=== PATIENT | male | born 1980 | race Caucasian/White ===

== ENCOUNTER 2019-12-31 13:41 | Outpatient (REF) | payer BC, SELFPAY | END 2019-12-31 13:42 | disposition home or self-care (01) | LOC: HO.LNP 13:41 | PROVIDERS: Visit Provider Hospitalist | DX: Z20.828 Contact with and (suspected) exposure to other viral communicable diseases (principal) | CPT/HCPCS: U0003 ==

== ENCOUNTER 2023-08-03 02:12 | Emergency (ER) | payer OTHER, SELFPAY ==
[2023-08-03 02:18] VITALS: PULSE 160; O2SAT 96
[2023-08-03 02:23] VITALS: BP 136/78; PULSE 151; RESP 22; TEMP 37.3; O2SAT 95; BMI 31.4
--- NOTE | 2023-08-03 02:30 | ECG_ITS ---
Test Reason : CHEST PAIN Blood Pressure : / mmHG Vent. Rate : 149 BPM Atrial Rate : 149 BPM P-R Int : 126 ms QRS Dur : 080 ms QT Int : 282 ms P-R-T Axes : 047 026 047 degrees QTc Int : 444 ms Sinus tachycardia Otherwise normal ECG No previous ECGs available Referred By: Generic ED Physician Electronically Signed By:REHAN HOWARD MD
--- NOTE | 2023-08-03 02:41 | PC.NURSE ---
Pt declining blood work and IV line placement at this time. made aware.
--- NOTE | 2023-08-03 02:42 | PC.NURSE ---
Urinal provided for urine sample. Pt unable to provide sample at this time.
--- NOTE | 2023-08-03 03:29 | MHC.EDTECH ---
PATIENT REFUSED BLOOD DRAW
--- NOTE | 2023-08-03 03:33 | PC.NURSE ---
Patient still refusing lab work and IV line at this time. WIll continue to reassess.
[2023-08-03 04:22] VITALS: BP 101/53; PULSE 120; RESP 16; TEMP 36.6; O2SAT 95
[2023-08-03 06:22] VITALS: BP 110/65; PULSE 119; RESP 18; TEMP 36.5; O2SAT 95
--- NOTE | 2023-08-03 07:07 | ED_ITS ---
HPI - General Adult General Chief complaint: General Medical Stated complaint: INGESTED MUSHROOMS Time Seen by Provider: 08/03/23 07:07 History of Present Illness HPI narrative: Patient is a 43-year-old male who comes to the emergency room this morning feeling unwell after taking some kind of gummies that he took it around midnight. He started to feel very high an anxious and paranoid. He says that he was out with friends partying when this happened. Somebody called an ambulance. His heart rate with paramedics was 165. His heart rate when he arrived here was 151. He says that he still feels very high and is having trouble relaxing. He says he has never used these kind of drugs before. The patient said that he had biceps surgery on his left arm approximately 5 days ago at [facility]. He had repair of a biceps tendon rupture he thinks. He says that he also took the gummies because he was having pain. No suicidality. Related Data Home Medications ?Medication ?Instructions ?Recorded ?Confirmed No Known Home Meds 12/31/19 12/31/19 Allergies Allergy/AdvReac Type Severity Reaction Status Date / Time No Known Allergies Allergy Verified 08/03/23 02:28 Review of Systems 2 Review of Systems: Yes all other systems are reviewed and are negative [facility] Social History Social History Smoked in Last 30 Days: Yes Use of substances other than those prescribed or required for medical reasons: Yes Advance Directives: No Advance Directives Information Provided: No Do you have a plan to hurt others: No Plan Physical Exam ED Vital Signs: Vital Signs - 24 hr 08/03/23 02:23 08/03/23 04:22 08/03/23 06:22 Temperature 99.1 F 97.8 F 97.7 F Pulse Rate 151 H 120 H 119 H Respiratory Rate 22 H 16 18 Blood Pressure 136/78 101/53 L 110/65 Pulse Oximetry 95 95 95 Oxygen Delivery Method Room Air Room Air Room Air BMI result Body Mass Index 31.4 Const Other: The patient is awake and alert. He is complaining of feeling anxious. Does not seem in obvious distress. HENMT Other: Face is symmetrical. Mucous membranes moist. Eyes Other: Pupils are round equal, conjunctivae clear, extraocular movements intact Neck Other: Neck is supple. Resp Effort & Inspection: normal respiratory effort Auscultation: clear to auscultation bilaterally Cardio Rate: tachycardic Rhythm: regular rhythm Heart sounds: S1 normal heart sound present and S2 normal heart sound present GI Other: Abdomen is soft and nontender Skin Other: Skin is dry and unremarkable Neuro Other: The patient is awake and alert. He does not seem disoriented or significantly altered. He is complaining of feeling anxious but seems coherent. Cranial nerves are intact. He moves his extremities symmetrically although his left arm is in an orthopedic device. Extrem Other: The patient's left arm is in an orthopedic appliance. The other extremities are unremarkable. Medications Administered Discontinued Medications Generic Name Dose Route Start Last Admin Trade Name Freq PRN Reason Stop Dose Admin Lorazepam 2 mg 08/03/23 07:18 08/03/23 08:16 Lorazepam 1 Mg Tablet PO 08/03/23 07:19 2 mg ONCE ONE Administration Medical Decision Making Medical Decision Making [facility] Narrative: The patient is a 43-year-old male who presented with symptoms of anxiety after using what I believe were marijuana gummies. He does not seem obviously ill in any other way although he was tachycardic. His tachycardia had largely resolved by the time I saw him. He was given 2 mg of lorazepam. He was observed for many hours. At 1 point he said that he was feeling better. Ultimately when I went to check on him it was apparent that he had eloped from the emergency department prior to any further discussions or discharge recommendations. Lab Data 08/03/23 09:06 08/03/23 09:05 Labs: Lab Results 08/03/23 08/03/23 Range/Units 09:05 09:06 WBC 10.8 (4.8-10.8) X10*3/uL RBC 4.78 (4.60-5.80) X10*6/uL Hgb 16.5 (14.0-18.0) g/dl Hct 44.4 (42.0-52.0) % MCV 92.9 (80.0-98.0) fL MCH 34.5 H (27.0-33.0) pg MCHC 37.2 H (31.0-36.0) g/dl RDW 11.8 (11.0-16.0) % Plt Count 304 (160-400) X10*3/uL MPV 9.4 (9.4-12.4) fL Immature Gran % (Auto) 0.5 H (0.0-0.4) % Neut % (Auto) 74.4 H (45-73) % Lymph % (Auto) 18.2 L (20-40) % [place] % (Auto) 6.1 (2-11) % Eos % (Auto) 0.4 (0-4) % Baso % (Auto) 0.4 (0-2) % Lymph # (Auto) 2.0 (1.2-4.9) X10*3/uL [place] # (Auto) 0.7 (0.1-1.2) X10*3/uL Eos # (Auto) 0.0 (0.0-0.4) X10*3/uL Baso # (Auto) 0.0 (0.0-0.2) X10*3/uL Abs Immat Gran (auto) 0.05 H (0.00-0.03) X10*3/uL Absolute Neuts (auto) 8.0 (2.0-8.3) x10*3/uL Absolute Nucleated RBC 0.000 (0.0-0.012) X10*3/uL Nucleated RBC % (auto) 0.0 (0.0-0.2) /100WBC Sodium 141 (135-145) mmol/L Potassium 4.0 (3.3-5.1) mmol/L Chloride 107 (96-108) mmol/L Carbon Dioxide 24 (22-29) mmol/L Anion Gap 14 (12-20) BUN 15 (9-16) mg/dL Creatinine 0.79 (0.5-1.4) mg/dL Estim Creat Clear Calc 152.5 Estimated GFR > 60 Random Glucose 111 (60-115) mg/dL Calcium 9.6 (8.4-10.2) mg/dL Total Bilirubin 0.5 (0.0-1.0) mg/dL AST 32 (5-37) U/L ALT 76 H (0-40) U/L Alkaline Phosphatase 84 (39-117) U/L Troponin I High Sens < 2.7 (<3.5-35.0) ng/L Total Protein 7.5 (6.5-8.0) g/dL Albumin 4.4 (3.5-5.0) g/dL Ethyl Alcohol 13 mg/dL Independent Interpretation I performed an independent interpretation of an: EKG Interpretation: EKG at 02:28 shows sinus tachycardia 149 beats per minute. It is an otherwise normal EKG. Discharge Plan Discharge Clinical Impression: Diagnosis unknown Patient Disposition: Elopement Prescriptions: No Action No Known Home Meds Interventions: ED Discharge Assessment Last Done: 08/03/23 19:21 Discharge Date/Time: 08/03/23 19:21 Print Language: French
--- NOTE | 2023-08-03 07:15 | PC.NURSE ---
ASSUMED CARE OF PT THIS AM, PT IS 1&OX4, VERY ANXIOUS, UNABLE TO SLEEP, STATES HE ATE 3 THC GUMMIES FOR PAIN AFTER HIS SURGERY YESTERDAY.. HAS BEEN REFUSING LABS. PT TO BE GIVEN PO ATIVAN.
[2023-08-03] MEDS: LORazepam 1 MG TABLET 2 MG PO (08:16)
[2023-08-03 09:10] LABS: MANUAL DIFF FLAG NO
[2023-08-03 09:12] LABS: Basophils Percent Auto 0.4 % (0-2); Eosinophils Percent Auto 0.4 % (0-4); Hematocrit 44.4 % (42.0-52.0); Hemoglobin 16.5 g/dl (14.0-18.0); Imm Gran Abs Auto 0.05 X10*3/uL (0.00-0.03); Imm Gran Pct Auto 0.5 % (0.0-0.4); Lymphocytes Percent Auto 18.2 % (20-40); Mean Corpuscular HGB Conc 37.2 g/dl (31.0-36.0); Mean Corpuscular Hemoglobin 34.5 pg (27.0-33.0); Mean Corpuscular Volume 92.9 fL (80.0-98.0); Mean Platelet Volume 9.4 fL (9.4-12.4); Monocytes Absolute Auto 0.7 X10*3/uL (0.1-1.2); Monocytes Percent Auto 6.1 % (2-11); Neutrophils Percent Auto 74.4 % (45-73); Platelet Count 304 X10*3/uL (160-400); Red Blood Count 4.78 X10*6/uL (4.60-5.80); Red Cell Distribution Width 11.8 % (11.0-16.0); White Blood Count 10.8 X10*3/uL (4.8-10.8)
[2023-08-03 09:23] LABS: Ethanol 13 mg/dL
[2023-08-03 09:26] LABS: Alanine Aminotransferase 76 U/L (0-40); Albumin Level 4.4 g/dL (3.5-5.0); Alkaline Phosphatase 84 U/L (39-117); Anion Gap 14 (12-20); Aspartate Amino Transferase 32 U/L (5-37); Bilirubin Total 0.5 mg/dL (0.0-1.0); Blood Urea Nitrogen 15 mg/dL (9-16); Calcium 9.6 mg/dL (8.4-10.2); Carbon Dioxide 24 mmol/L (22-29); Chloride 107 mmol/L (96-108); Creatinine Clr Calc Pharmacy 152.5; Estimated Glomerular Filt Rate > 60; Glucose Random 111 mg/dL (60-115); Sodium 141 mmol/L (135-145); Total Protein 7.5 g/dL (6.5-8.0)
[2023-08-03 09:39] LABS: Troponin-I High Sensitivity < 2.7 ng/L (<3.5-35.0)
[2023-08-03 19:21] VITALS: BP 110/65; PULSE 119; RESP 18; TEMP 36.5; O2SAT 95
== END 2023-08-03 19:21 | disposition left against medical advice (07) ==
PROVIDERS: Emergency Provider Emergency Medicine
DX: R00.0 Tachycardia, unspecified (principal)
CPT/HCPCS: 36415; 80053; 80307; 84484; 85025; 93005; 99283; 99284

== ENCOUNTER → 2023-08-03 02:30 | Outpatient (BNV) | payer OTHER, SELFPAY | PROVIDERS: Emergency Provider Emergency Medicine; Visit Provider Internal Medicine Cardiovascular Disease | DX: R07.9 Chest pain, unspecified (principal); R00.0 Tachycardia, unspecified | CPT/HCPCS: 93010 ==

== ENCOUNTER 2025-01-17 11:17 | Outpatient (REF) | payer BC, SELFPAY ==
[2025-01-17 18:23] LABS: MANUAL DIFF FLAG NO
[2025-01-17 18:40] LABS: Hematocrit 51.6 % (42.0-52.0); Hemoglobin 18.1 g/dl (14.0-18.0); Imm Gran Abs Auto 0.01 X10*3/uL (0.00-0.03); Imm Gran Pct Auto 0.1 % (0.0-0.4); Lymphocytes Absolute Auto 2.1 X10*3/uL (1.2-4.9); Mean Corpuscular HGB Conc 35.1 g/dl (31.0-36.0); Mean Corpuscular Hemoglobin 33.4 pg (27.0-33.0); Mean Corpuscular Volume 95.2 fL (80.0-98.0); NRBC Abs Auto 0.000 X10*3/uL (0.0-0.012); NRBC Pct Auto 0.0 /100WBC (0.0-0.2); Platelet Count 256 X10*3/uL (160-400); Red Blood Count 5.42 X10*6/uL (4.60-5.80); White Blood Count 9.1 X10*3/uL (4.8-10.8)
[2025-01-17 18:47] LABS: Appearance Urine Turbid; Glucose Urine UA Negative (Negative); PH 5.5 (5.0-9.0); Specific Gravity - Urine >= 1.030 (1.005-1.025)
[2025-01-17 19:02] LABS: Alanine Aminotransferase 33 U/L (0-40); Albumin Level 5.0 g/dL (3.5-5.0); Alkaline Phosphatase 94 U/L (39-117); Anion Gap 12 (12-20); Aspartate Amino Transferase 27 U/L (5-37); Blood Urea Nitrogen 16 mg/dL (9-16); Calcium 9.6 mg/dL (8.4-10.2); Carbon Dioxide 26 mmol/L (22-29); Chloride 107 mmol/L (96-108); Cholesterol 172 mg/dL (<200); Estimated Glomerular Filt Rate > 60; HDL Cholesterol 44 mg/dL (>40); Magnesium 2.3 mg/dL (1.6-2.6); Potassium 3.8 mmol/L (3.3-5.1); Sodium 141 mmol/L (135-145); Total Protein 7.9 g/dL (6.5-8.0); Triglycerides 131 mg/dL (<150)
[2025-01-17 19:25] LABS: Folate 11.4 ng/mL (> or = 4.0); Vitamin B12 500 pg/mL (200-900)
[2025-01-18 05:10] LABS: HBS Num1 0.40 mIU/mL (0-7.99); HBsAGNum1 0.49 S/CO (0.00-0.99); HIV Num 1 0.07 S/CO (0.00-0.99); Hepatitis B Surface Antigen Negative (Negative); ~HepC Num1 0.14 S/CO (0.00-0.79); ~Hepatitis B Surface Antibody NONREACTIVE (Nonreactive); ~Hepatitis C Antibody Nonreactive (Nonreactive)
[2025-01-21 15:32] LABS: VITAMIN D (1,25 OH) D3 58 pg/mL; Vit D (1,25-Dihydroxy) Total 58 pg/mL (18-72); Vitamin D (1,25 OH) D2 <8 pg/mL
== END 2025-01-17 11:18 | disposition home or self-care (01) ==
LOC: HO.HKASLDS 11:17
PROVIDERS: PCP Student in an Organized Health Care Education/Training Program; Visit Provider Student in an Organized Health Care Education/Training Program
DX: Z13.9 Encounter for screening, unspecified (principal); E66.9 Obesity, unspecified; K92.1 Melena; J45.40 Moderate persistent asthma, uncomplicated; K40.90 Unilateral inguinal hernia, without obstruction or gangrene, not specified as recurrent; G47.9 Sleep disorder, unspecified; R03.0 Elevated blood-pressure reading, without diagnosis of hypertension; Z79.899 Other long term (current) drug therapy; Z83.719 Family history of colon polyps, unspecified; Z68.29 Body mass index [BMI] 29.0-29.9, adult
CPT/HCPCS: 36415; 80053; 80061; 81003; 82607; 82652; 82746; 83036; 83735; 84443; 85025; 86706; 86803; 87340; 87389; 96127

== ENCOUNTER 2025-01-17 11:17 | Outpatient (AMB) | payer BC, SELFPAY ==
--- NOTE | 2025-01-17 11:20 | A.OFFPC_ITS ---
Vital Signs 01/17/25 11:27 Height 6 ft 0.5 in Weight 222 lb 2 oz BMI 29.7 BP 134/70 Blood Pressure Location Lt brachial Position Sitting Respiration 20 Pulse 92 Pulse Source Monitor Temp 97.4 F Temp Source Oral Pulse Oximetry (%) 96 Oxygen Delivery Method Room Air Intake Visit Reasons: LOAN ADMINISTRATOR // Stomach Issues Intake Note: stomach issues Algology Teacher Required: No Accompanied by: Self / Same As Patient Allergies No Known Allergies Allergy (Verified 01/17/25 11:24) Medication List - Last Reconciled 01/17/25 by Kermit Khan MD albuterol sulfate 90 mcg/actuation (Ventolin HFA) 2 puffs inhalation Q6H PRN budesonide-formoterol 80-4.5 mcg/actuation 2 puffs inhalation BID Tobacco use date assessed: 01/17/25 Dental Screening Dental Screen Date: 01/17/25 Did you have a dental visit in the last 12 months?: No Did you have a dental problem in the last 6 months where you did not have access to dental care?: No Was dental information given to patient?: No HPI HPI Comments History of Present Illness Details History of Present Illness The patient is a 44 year old individual presenting to replaced by [facility], for management of worsening asthma, and evaluation of intermittent hematochezia. Asthma: The patient has a history of asthma, which has worsened recently. Over the past month, the patient has had to use an xzid-ckn-atotmdh rescue inhaler frequently due to an increase in symptoms. Hematochezia: The patient reports intermittent episodes of passing blood in the stool. The patient describes the blood as being mixed in the feces, and also present on toilet paper when wiping. A previous physician recommended a colonoscopy, which was never completed. The patient acknowledges a history of hemorrhoids. There is a family history of colon polyps in the patient's father. Right Inguinal Hernia: The patient has had a right inguinal hernia for years. A previous doctor had suggested that surgery may not be necessary. The patient reports feeling it Sleep Disturbance: The patient reports a lifelong history of poor sleep and not feeling refreshed upon waking. History of Prehypertension: A previous physician informed the patient of having borderline high blood pressure and warned that antihypertensive medication might be necessary if it persisted, although none was ever prescribed. History of Suspicious Nevus: The patient was informed by a previous physician about a mole on the back that appeared irregular and needed to be checked, but the patient never followed up. Medications: - Fjnq-ixe-sbkbbnr rescue inhaler as nee ded for asthma, with increased use over the last month. Social History: - Tobacco Use: Denies smoking. - Illicit Drug Use: Denies drug use. - Occupation: Works as a [employer]. - Family: Has a son. - Insurance: Employment is through a [employer] on and recently regained insurance co verage. Family History: - Father: History of colonic polyps and current heart issues. - Mother: ; had a history of earl ast cancer and subsequently cancer involving the kidneys. - Grandfathers: Both paternal and matern al grandfathers from heart attacks. Past Medical History - Asthma - Right inguinal hernia, present for yea rs, untreated - History of prehypertension - Hemorrhoids - History of suspicious nevus on back, u nevaluated Health Maintenance - Ordered comprehensive laboratory studi es including a complete blood count, comprehensive metabolic panel, thyroid stimulating hormone, vitamin B12, folate, vitamin D, hepatitis B and C panel, HIV screen, hemoglobin A1c, and a lipid panel. - Plan to follow up in two weeks to revi ew the results. [facility] Medical History (Updated 01/17/25 @ 11:59 by Kermit Khan MD) Prehypertension Sleep disturbance Right inguinal hernia Moderate persistent asthma Family history of polyps in the colon Bloody stool Biceps tendon tear Asthma Surgical History (Updated 01/17/25 @ 11:26 by Gary Martin CMA) S/P ACL surgery Family History (Updated 01/17/25 @ 11:26 by Gary Martin CMA) Mother Cancer Social History (Updated 01/17/25 @ 11:27 by Gary Martin CMA) Housing: Apartment Alcohol intake: never Patient Tobacco Use Status: Never used Tobacco e-Cigarette/Vaping Use: Never Used service: No Current occupational status: employed Current occupation: carpenter apprentice Current occupational exposures/hazards: Yes Cognitive needs: No Hearing needs: No Vision needs: Yes Questionnaire PHQ-9 Over the last 2 weeks, how often have you been bothered by any of the following problems? 1. Little interest or pleasure in doing things: not at all 2. Feeling down, depressed, or hopeless: not at all 3. Trouble falling or staying asleep, or sleeping too much: not at all 4. Feeling tired or having little energy: not at all 5. Poor appetite or overeating: not at all 6. Feeling bad about yourself - or that you are a failure or have let yourself or your family down: not at all 7. Trouble concentrating on things, such as reading the newspaper or watching television: not at all 8. Moving or speaking so slowly that other people could have noticed. Or the opposite - being so fidgety or restless that you have been moving around a lot more than usual: not at all 9. Thoughts that you would be better off or of hurting yourself in some way: not at all Total score: 0 Depression Screening Interpretation: Negative Depression Screening Done: Yes 48514 - PHQ-9 Billing: Yes Source: Developed by Drs. Graham Hairston, Maria Esther Neely, Major Rocha and colleagues, with an educational kyrie from [email or web address]. Thrive Questionnaire Date Thrive assessed: 01/17/25 I am a: Patient What is your living situation today?: I have a steady place to live Within the past 12 months, did the food you bought not last and you didn't have the money to get more?: Never true Within the past 12 months, did you worry whether your food would run out before you got money to buy more?: Never true Do you have trouble paying for medicines?: No Do you have trouble getting transportation to medical appointments?: No Do you have trouble paying your heating and electricity bill?: No Do you have trouble taking care of your child, family member or friend?: No Are you currently unemployed and looking for a job?: No Are you interested in more education?: No Please select the resources that you would like help with: None Currently or been in a relationship where the following occur: No concerns reported THRIVE Score: 0 AUDIT C Alcohol Use Questionnaire (AUDIT-C) 1. How often do you have a drink containing alcohol?: Never Total Score: 0 SAMRA-7 AMB Questionnaire SAMRA-7 Date SAMRA - 7 assessed: 01/17/25 Feeling nervous, anxious, or on edge: 0 = Not at all Not being able to stop or control worryin = Not at all Worrying too much about different things: 0 = Not at all Trouble relaxin = Not at all Being so restless that it is hard to sit still: 0 = Not at all Becoming easily annoyed or irritable: 0 = Not at all Feeling afraid as if something awful might happen: 0 = Not at all Total SAMRA-7 score (0-4 normal; 5-9 mild; 10-14 moderate; 15-21 severe): 0 Source: Developed by Drs. Graham Hairston, Maria Esther Neely, Major Rocha and colleagues, with an educational kyrie from [email or web address]. SAMRA-7 Assessment Billing SAMRA-7 Assessment Tool: SAMRA-7 Assessment 56489 Review of Systems Narrative Review of Systems - Constitutional: Reports lifelong poor sleep and not feeling refreshed in the morning. - Respiratory: Reports worsening asthma symptoms recently, requiring frequent use of a rescue inhaler. - Gastrointestinal: Reports intermittent hematochezia, described as blood in the stool. Acknowledges having hemorrhoids. Reports normal bowel and bladder function otherwise. - Skin: Reports a history of a mole on the back that was previously identified as irregular by another provider. - All other systems reviewed and are negative. 10-point ROS reviewed and negative except as noted in HPI Physical exam (Primary Care) Vital Signs: Last Vital Signs Temp 97.4 F 01/17/25 11:27 Pulse 92 01/17/25 11:27 Resp 20 01/17/25 11:27 BP 134/70 01/17/25 11:27 Pulse Ox 96 01/17/25 11:27 Oxygen Delivery Method Room Air 01/17/25 11:27 BMI result Body Mass Index 29.7 Tobacco/Smoking Status: Tobacco use Status Tobacco use date assessed 01/17/25 01/17/25 11:29 Patient Tobacco Use Status Never used Tobacco 01/17/25 11:29 e-Cigarette/Vaping Use Never Used 01/17/25 11:29 PHQ-9: PHQ-9 Score PHQ-9: Total score 0 01/17/25 11:33 Depression Screening Interpretation: Negative Thrive Assessment: Date of Thrive Assessment Date Thrive assessed 01/17/25 01/17/25 11:23 Currently or been in a relationship where the following occur: No concerns reported Narrative Physical Exam General: Well-appearing, in no acute distress. Vital signs: Within normal limits. HEENT: Normocephalic, atraumatic. PERRLA, EOMI. Conjunctiva clear, sclera anicteric. Oropharynx clear, mucous membranes moist. TMs intact bilaterally. Neck: Supple, no lymphadenopathy, no thyromegaly, no JVD or carotid bruits. Cardiovascular: RRR, normal S1/S2, no murmurs, rubs, or gallops. Peripheral pulses 2+ and symmetric. No edema. Respiratory: Lungs clear to auscultation bilaterally, no wheezes, rales, or rhonchi. Normal effort. Abdomen: Soft, non-tender, non-distended. Normoactive bowel sounds. No hepatosplenomegaly, no masses. MSK: Full range of motion, no joint swelling or deformity. Normal gait. Skin: Warm, dry, intact. No rashes, lesions, or pallor. Noted mole on back, appears fine. Neuro: Alert and oriented x3. Cranial nerves II-XII intact. Strength 5/5 thr oughout. Sensation intact. Reflexes 2+ symmetric. Normal coordination and gait. Psych: Appropriate mood and affect. Normal judgment and insight. Coding Level of Care Code New Pt Level 4 (15971) Diagnoses Overweight (BMI 25.0-29.9) E66.3 Bloody stool K92.1 Family history of polyps in the colon Z83.719 Moderate persistent asthma J45.40 Right inguinal hernia K40.90 Sleep disturbance G47.9 Prehypertension R03.0 Additional Codes SAMRA-7 Assessment Billing - SAMRA-7 Assessment Tool: SAMRA-7 Assessment 52511 ([id number]) PHQ-9 - 53485 - PHQ-9 Billing: Yes ([id number]) Assessment & Plan Assessment & Plan (1) Overweight (BMI 25.0-29.9): Code(s): E66.3 - Overweight (2) Bloody stool: Code(s): K92.1 - Melena Category: Medical (3) Family history of polyps in the colon: Code(s): Z83.719 - Family history of colon polyps, unspecified Category: Medical (4) Moderate persistent asthma: Code(s): J45.40 - Moderate persistent asthma, uncomplicated Category: Medical (5) Right inguinal hernia: Code(s): K40.90 - Unilateral inguinal hernia, without obstruction or gangrene, not specified as recurrent Category: Medical (6) Sleep disturbance: Code(s): G47.9 - Sleep disorder, unspecified Category: Medical (7) Prehypertension: Code(s): R03.0 - Elevated blood-pressure reading, without diagnosis of hypertension Category: Medical Plan Consent The risks, benefits, and alternatives for the prescribed maintenance inhaler were discussed, including the risk of developing oral thrush if the mouth is not rinsed after use. The risks associated with an untreated inguinal hernia, including the potential for strangulation and subsequent necrosis, were explained. The patient agreed to lab work, a referral to gastroenterology for colonoscopy, and a referral to general surgery for evaluation of the hernia. Patient was informed and verbally consented to the use of an ambient scribe for clinic note documentation during this visit. Plan 1. Mild Intermittent Asthma - Prescribed an albuterol inhaler for rescue use. - A prescription for a combination steroid/long-acting bronchodilator maintenance inhaler was sent to the pharmacy, to be used twice daily. - A prior authorization is required for the maintenance inhaler. - The patient was counseled to rinse their mouth after using the maintenance inhaler to prevent oral thrush. 2. Hematochezia - Placed a referral to Gastroenterology for further evaluation and a colonoscopy to investigate the cause of bleeding, considering the differential of hemorrhoids versus other pathology such as polyps. 3. Right Inguinal Hernia - Referred to a general surgeon for evaluation and to discuss management options. - The patient was informed about the risk of strangulation. 4. Sleep Disturbance - Will consider ordering an at-home sleep study at the follow-up visit if sympto ms persist. 5. History Of Suspicious Nevus - A skin exam of the patient's back was performed, and no suspicious lesions were identified. - Plan to continue monitoring. Discussion Notes I met with the patient, a 44-year-old individual, to establish primary care. We discussed the recent worsening of asthma symptoms and the need for a daily maintenance inhaler in addition to a rescue inhaler. I explained that the maintenance inhaler contains a steroid and must be used twice daily, emphasizing the importance of rinsing the mouth afterward to prevent oral thrush. We addressed the patient's report of bloody stools. Given the symptoms and an paternal family history of colon polyps, I recommended a referral to a dictaphone mechanic for a colonoscopy to determine the cause. We discussed that while hemorrhoids are a possible cause, a thorough evaluation is necessary. The patient also has a long-standing right inguinal hernia. I explained the risk of strangulation, a serious complication where tissue can become trapped and lose blood supply, and recommended a referral to a general surgeon for evaluation. We will obtain comprehensive baseline labs and review them in two weeks. We also discussed cardiovascular risk prevention, focusing on lifestyle modifications. An at-home sleep study was mentioned as a potential future diagnostic for the patient's chronic sleep issues. Patient Instructions - Use your new daily maintenance inhaler every day, taking two puffs in the morning and two puffs at night, even if you feel well. - After using the maintenance inhaler, you must rinse your mouth with water and spit it out to prevent an infection called thrush. - Use the albuterol (rescue) inhaler only when you feel short of breath or are wheezing. - You will be contacted by a specialist's office to schedule an appointment with a stomach doctor (dictaphone mechanic) to have a colonoscopy. - You will also be contacted by a surgeon's office to schedule an appointment to discuss your hernia. - Go to a laboratory to have your blood drawn for the tests that were ordered. - Return to the office in two weeks to discuss your lab results. - If your hernia becomes very painful and you cannot push it back in, you need to seek medical care immediately. Medical Decision Making The patient is a 44-year-old individual presenting to replaced by [facility] with several active health concerns. The primary issue of poorly controlled asthma, evidenced by increased use of a rescue inhaler, warrants a step-up in therapy. I have prescribed a combination inhaled corticosteroid/long-acting beta-agonist (ICS/LABA) for daily maintenance to reduce airway inflammation and provide sustained bronchodilation, which is pending prior authorization. The patient's report of hematochezia is concerning, particularly in the context of a family history of colon polyps. While hemorrhoids are also reported and could be the source of bleeding, the description of blood mixed within the stool necessitates a comprehensive evaluation. Therefore, a referral to gastroenterology for consultation and colonoscopy is the most appropriate next step to rule out significant pathology. The long-standing and symptomatic inguinal hernia requires surgical consultation. I have referred the patient to general surgery to discuss the risks, including strangulation, versus the benefits of surgical repair. Comprehensive baseline labs have been ordered to screen for common chronic conditions like diabetes and dyslipidemia and to assess the patient's overall health status. Cardiovascular risk was discussed in the context of a significant family history, and the current plan focuses on prevention and monitoring through lab work and lifestyle assessment. The chronic sleep disturbance will be re-evaluated at the two-week follow-up, with a low threshold for ordering an at- home sleep study if indicated. Total Time Statement 30 min Total time spent caring for the patient today includes pre-visit chart review, documentation, review of laboratory and diagnostic imaging results, medication reconciliation, medically necessary evaluation, counseling on diagnoses, care coordination, ordering appropriate tests and medications, review of tests performed by other providers, reporting test results to the patient, and communication with other healthcare providers. Orders: Orders Hepatitis C Antibody Today Z13.9 - Encounter for screening, unspecified TSH reflex Free T4 Today Z13.9 - Encounter for screening, unspecified HIV Ab/Ag Today Z13.9 - Encounter for screening, unspecified Lipid Panel Today Z13.9 - Encounter for screening, unspecified Hemoglobin A1c Today Z13.9 - Encounter for screening, unspecified Magnesium Today Z13.9 - Encounter for screening, unspecified Hepatitis B Surface Antibody Today Z13.9 - Encounter for screening, unspecified Complete Blood Count Auto Diff Today Z13.9 - Encounter for screening, unspecified Hepatitis B Surface Antigen Today Z13.9 - Encounter for screening, unspecified Comprehensive Met. Panel Today Z13.9 - Encounter for screening, unspecified UA CC w/rflx Micro + Cult Today Z13.9 - Encounter for screening, unspecified AMB Hemoglobin A1c Today Z13.9 - Encounter for screening, unspecified Vitamin B12 and Folate Today Z13.9 - Encounter for screening, unspecified Vitamin D 1,25 dihydroxy Today Z13.9 - Encounter for screening, unspecified Referrals Gastroenterology Referral J45.40 - Moderate persistent asthma, uncomplicated, K92.1 - Melena, Z83.719 - Family history of colon polyps, unspecified General Surgery Referral K40.90 - Unilateral inguinal hernia, without obstruction or gangrene, not specified as recurrent Medications: New albuterol sulfate 90 mcg/actuation (Ventolin HFA) 2 puffs inhalation Q6H PRN 8.5 grams 3RF shortness of breath or wheezing budesonide-formoterol 80-4.5 mcg/actuation 2 puffs inhalation BID 10.2 grams 0RF
[2025-01-17 11:27] VITALS: BP 134/70; PULSE 92; RESP 20; TEMP 36.3; O2SAT 96; BMI 29.7
--- OUTSIDE RECORDS SUMMARY | 2025-01-17 14:42 | XMS_ITS | Encounter Summary ---
Author Organization [facility] Address [address] [place] [address] [place] [address] Phone Care Team Providers Care Real Estate Recruiter Name Role Phone Adriana Vee Primary Care Provider Pcp, Unknown Primary Care Provider Unavailabl e Pcp, Unknown Primary Care Provider Unavailabl e Adriana Vee Unavailable [phone] Lubna Cabrales MD Unavailable Lubna Cabrales MD Unavailable Lubna Cabrales MD Unavailable Pcp, Unknown Primary Care Provider Unavailabl e Encounter Details Date Type Department Care Team (Latest Contact Info) Description 02/20/2017 Transcribe Orders [facility] [address] [place] [address] Adriana Vee PA [address] [place] [address] [email or web address] Routine general medical examination at a health care facility (Primary Dx); Chest pain, unspecified type; Palpitations; Dizziness and giddiness Social History Tobacco Use Types Packs/Day Years Used Date Smoking Tobacco: Never Assessed Sex and Gender Information Value Date Recorded Sex Assigned at Male 09/08/2022 12:51 PM EDT Legal Sex Male 12:41 PM EDT Gender Identity Male 09/08/2022 12:51 PM EDT Sexual Orientation Straight 02/19/2024 5: 16 PM EST documented as of this encounter Plan of Treatment Not on file documented as of this encounter Results * Chlamydia Trachomatis and Neisseria Gonorrhoeae Nucleic Acid Detection (02/20/2017 3:55 PM EST) CHLAMYDIA TRACHOMATIS Not Detected Not Detected [facility] NEISERIA GONORRHOEAE Not Detected Not Detected [facility] SPECIMEN TYPE URINE [facility] Urine (Urine) 02/20/2017 3:5 5 PM EST 02/20/2017 3:57 PM EST Adriana LESLIE LAB GENERAL ORDERABLES Final Re sult Performing Organization Address [facility] Co de Phone Number [address] [address] * (ABNORMAL) Urinalysis (02/20/2017 3:55 PM EST) COLOR Yellow Yellow [facility] CLARITY CLOUDY [facility] GLUCOSE Negative Negative [facility] BILI Negative Negative [facility] KETONES Trace(A) Negative [facility] SPECIFIC GRAVITY 1.015 1.005 - 1.030 [facility] BLOOD Negative Negative [facility] PH 7.5 5.0 - 8.0 [facility] Protein-UA Negative Negative [facility] NITRITE Negative Negative [facility] Leukocyte esterase, ur Negative Negative [facility] Urine (Urine) 02/20/2017 3:5 5 PM EST 02/20/2017 3:57 PM EST Adriana LESLIE LAB URINE ORDERABLES Final Resu lt Performing Organization Address [facility] Co de Phone Number [address] [address] * Syphilis antibody screen (02/20/2017 2:17 PM EST) RPR NON-REACTIV E NON-REACTI VE [facility] Blood 02/20/2017 2:17 PM EST 02/20/2017 2:25 PM EST us Adriana Blume PA LAB BLOOD BKR ORDERABLES Final Result Performing Organization Address City/[facility]/ZIP Co de Phone Number [address] [address] * HIV-1/2 antigen/antibody (02/20/2017 2:17 PM EST) HIV Antibod(ies) NON-REACTI VE NON-REACTI VE [facility] HIV-1 ANTIGEN NON-REACTI VE NON-REACTI VE [facility] Blood 02/20/2017 2:17 PM EST 02/20/2017 2:25 PM EST us Adriana Blume PA LAB BLOOD BKR ORDERABLES Final Result Performing Organization Address [facility]/ZIP Co de Phone Number [address] [address] * Hepatitis B core antibody, total (02/20/2017 2:17 PM EST) HEP B CORE AB, TOT Negative Negative [facility] Blood 02/20/2017 2:17 PM EST 02/20/2017 2:25 PM EST us Adriana Smart Surgicalume PA LAB BLOOD BKR ORDERABLES Final Result Performing Organization Address City/[facility]/ZIP Co de Phone Number [address] [address] * Hepatitis C antibody, qualitative (02/20/2017 2:17 PM EST) HCV Negative Negative [facility] Comment: This is a screening test and should be confirmed with molecular testing Blood 02/20/2017 2:17 PM EST 02/20/2017 2:25 PM EST us Adriana Blume PA LAB BLOOD BKR ORDERABLES Final Result Performing Organization Address City/[facility]/ZIP Co de Phone Number [address] [address] * Hepatitis B surface antibody (02/20/2017 2:17 PM EST) Pathologist [facility] HBV SURFACE ANTIBODY Negative [facility] Comment: Unvaccinated: Negative Vaccinated: Positive Blood 02/20/2017 2:17 PM EST 02/20/2017 2:25 PM EST [facility] LAB BLOOD BKR ORDERABLES Final Result Performing Organization Address [facility] de Phone Number [address] [address] * Hepatitis B surface antigen (02/20/2017 2:17 PM EST) Pathologist [facility] HBV SURFACE ANTIGEN Negative Negative [facility] Blood 02/20/2017 2:17 PM EST 02/20/2017 2:25 PM EST [facility] LAB BLOOD BKR ORDERABLES Final Result Performing Organization Address [facility] de Phone Number [address] [address] * (ABNORMAL) CBC and differential (02/20/2017 2:17 PM EST) Pathologist [facility] WBC 7.66 3.40 - 11.20 K/uL [facility] RBC 4.57 4.50 - 5.50 M/uL [facility] HGB 15.0 13.0 - 17.0 g/dL [facility] HCT 41.0 40.0 - 51.0 % [facility] PLT 251 130 - 400 K/uL [facility] MCV 89.7 79.0 - 98.0 [facility] MCH 32.8 27.0 - 34.8 pg [facility] MCHC 36.6(H) 31.5 - 36.0 g/dL [facility] RDW 11.8 10.8 - 14.6 % [facility] MPV 10.2 9.4 - 12.4 [facility] NRBC 0.00 /100 WBCs [facility] ABSOLUTE NRBC 0.00 K/uL [facility] DIFF METHOD Auto [facility] NEUTS 68.6 45.30 - 77.70 % [facility] LYMPHS 22.5 12.30 - 39.70 % [facility] MONOS 6.7 4.10 - 12.80 % [facility] EOS 1.6 0 - 7.2 % [facility] BASOS 0.5 0 - 2.80 % [facility] Granulocytes, immature (%) 0.1 0.0 - 0.9 % [facility] ABSOLUTE NEUTS 5.26 1.40 - 7.70 K/uL [facility] ABSOLUTE LYMPHS 1.72 0.60 - 3.20 K/uL [facility] ABSOLUTE MONOS 0.51 0.11 - 0.59 K/uL [facility] ABSOLUTE EOS 0.12 0.01 - 0.50 K/uL [facility] ABSOLUTE BASOS 0.04 0.00 - 0.08 K/uL [facility] Granulocytes, immature 0.01 0.00 - 0.05 K/uL [facility] Blood 02/20/2017 2:17 PM EST 02/20/2017 2:25 PM EST us Adriana LESLIE LAB BLOOD BKR ORDERABLES Final Result Performing Organization Address City/State/[facility] Co de Phone Number [address] [address] * (ABNORMAL) Lipid panel (02/20/2017 2:17 PM EST) HDL 51 mg/dL [facility] Comment: Interpretation: Risk Level Males Decreased >45 mg/dL Average 40-45 mg/dL Increased <40 mg/dL CHOLESTEROL 157 0 - 240 mg/dL [facility] TRIGLYCERIDES 177(H) 30 - 160 mg/dL [facility] LDL 71 50 - 129 mg/dL [facility] Comment: LDL levels in terms of risk for coronary heart disease: <100 mg/dL: Optimal 100-129 mg/dL: Near or above optimal 130-159 mg/dL: Borderline high 160-189 mg/dL: High >190 mg/dL: Very High CARDIAC RISK RATIO 3.1(L) 3.4 - 5.0 [facility] Blood 02/20/2017 2:17 PM EST 02/20/2017 2:25 PM EST [facility] LAB BLOOD BKR ORDERABLES Final Result [address] [address] * TSH (02/20/2017 2:17 PM EST) TSH 1.46 0.27 - 4.20 uIU/mL [facility] Blood 02/20/2017 2:17 PM EST 02/20/2017 2:25 PM EST [facility] LAB BLOOD BKR ORDERABLES Final Result Performing Organization Address City/[facility] Co de Phone Number [address] [address] * (ABNORMAL) Comprehensive metabolic panel (02/20/2017 2:17 PM EST) SODIUM 139 133 - 146 mmol/L [facility] POTASSIUM 3.6 3.3 - 5.1 mmol/L [facility] CHLORIDE 98 96 - 108 mmol/L [facility] CO2 28 21 - 35 mmol/L [facility] BUN 17 6 - 19 mg/dL [facility] CREATININE 0.60 0.5 - 1.5 mg/dL [facility] GLUCOSE 145(H) 70 - 99 mg/dL [facility] ALBUMIN 4.7 3.9 - 4.8 g/dL [facility] TOTAL PROTEIN 7.5 6.5 - 8.0 g/dL [facility] CALCIUM 9.2 8.4 - 10.3 mg/dL [facility] ALKALINE PHOSPHATASE 61 39 - 117 U/L [facility] TOTAL BILIRUBIN 0.6 0 - 1.2 mg/dL [facility] AST 25 0 - 37 U/L [facility] ALT 19 0 - 40 U/L [facility] GLOBULIN 2.8 1 - 4.8 g/dL [facility] EGFR >60 60 - 1000 mL/min/1.7 3m2 [facility] Comment:Abnormal if <60. If patient is -Belgian, multiply the result by 1.21. ANION GAP 17 10 - 20 mmol/L [facility] Blood 02/20/2017 2:17 PM EST 02/20/2017 2:25 PM EST us Adriana LESLIE LAB BLOOD BKR ORDERABLES Final Result Performing Organization Address City/State/[facility] Co de Phone Number [address] [address] documented in this encounter Visit Diagnoses Diagnosis Routine general medical examination at a health care facility- Primary Chest pain, unspecified type Palpitations Dizziness and giddiness documented in this encounter Additional Health Concerns Infection Onset Date Last Indicated Resolved Time CoV-Risk 12/04/2020 12/04/2020 12/04/2020 5:36 PM EDT COVID-19 12/04/2020 12/04/2020 12/25/2020 1:21 AM EDT documented as of this encounter Care Teams Real Estate Recruiter Relationship Specialty Start Date End Date Adriana Vee PA [address] [place] [address] [email or web address] PCP - General Unknown Provider Specialty 02/20/17 09/07/22 Pcp, Unknown PCP - General 09/08/22 09/17/22 Pcp, Unknown PCP - General 09/18/22 02/18/24 Pcp, Unknown PCP - General 02/19/24 Adriana Vee PA [address] [place] [address] [email or web address] Unknown Provider Specialty 09/08/22 Lubna Cabrales MD [address] [place] [address] Insurance Assigned Provider 06/27/18 03/26/19 Lubna Cabrales MD [address] [place] [address] [email or web address] Insurance Assigned Provider 06/30/19 08/30/19 Lubna Cabrales MD [address] [place] [address] [email or web address] Insurance Assigned Provider 03/04/20 12/30/20 documented as of this encounter Additional Source Comments The information contained in this document represents components of the legal health record. It is not the complete legal health record.[facility]
--- OUTSIDE RECORDS SUMMARY | 2025-01-17 14:42 | XMS_ITS | Encounter Summary ---
Author Organization [facility] Address [address] [place] [address] Phone Care Team Providers Care Secondary Market Manager Name Role Phone Pcp, Unknown Primary Care Provider Unavailabl e Adriana Vee Unavailable [phone] Pcp, Unknown Primary Care Provider Unavailabl e Encounter Details Date Type Department Care Team (Late st Contact Info) Description 07/16/2023 Procedure Pass [address] [place] [address] Social History Tobacco Use Types Packs/Day Years Used Date Smoking Tobacco: Former Cigarettes Passive Smoke Exposure: Never Smokeless Tobacco: Never Alcohol Use Standard Drinks/Week Comments Not Currently 0 (1 standard drink = 0.6 oz pur e alcohol) Education Answer Date Recorded Are you interested in more education? Not on delilah e 09/08/2022 Are you concerned about learning? Not on file 09/08/2022 No 09/08/2022 No 09/08/2022 Digital Access Answer Date Recorded No 09/08/2022 No 09/08/2022 Reliable internet access at home? Not on file 09/08/2022 Device with a working camera? Not on file Intimate Partner Violence Answer Date R ecorded Are you denied basic needs s uch as food, clothing, or medical care? No 07/15/2023 In the past 12 months have y ou been in a relationship with a person who hurts, threatens, or tries to control you? No 07/15/2023 Are you denied basic needs s uch as food, clothing, or medical care? No 07/15/2023 In the past 12 months have y ou been in a relationship with a person who hurts, threatens, or tries to control you? No 07/15/2023 Sex and Gender Information Value Date Recorded Sex Assigned at Male 09/08/2022 12:51 PM EDT Legal Sex Male 12:41 PM EDT Gender Identity Male 09/08/2022 12:51 PM EDT Sexual Orientation Straight 02/19/2024 5: 16 PM EST documented as of this encounter Plan of Treatment Not on file documented as of this encounter Visit Diagnoses Not on filedocumented in this encounter Care Teams Secondary Market Manager Relationship Specialty Start Date End Date Pcp, Unknown PCP - General 09/18/22 02/18/24 Pcp, Unknown PCP - General 02/19/24 Adriana [place] [address] [email or web address] Provider Specialty 09/08/22 documented as of this encounter Additional Source Comments The information contained in this document represents components of the legal health record. It is not the complete legal health record.[facility]
--- OUTSIDE RECORDS SUMMARY | 2025-01-17 14:42 | XMS_ITS | Encounter Summary ---
Author Organization [facility] Address [address] [place] [address] [place] [address] Phone Care Team Providers Care Sourcing Engineer Name Role Phone Adriana Vee Primary Care Provider [phone] Pcp, Unknown Primary Care Provider Unavailabl e Pcp, Unknown Primary Care Provider Unavailabl e Adriana Vee Unavailable [phone] Lubna Cabrales MD Unavailable Lubna Cabrales MD Unavailable Lubna Cabrales MD Unavailable Pcp, Unknown Primary Care Provider Unavailabl e Encounter Details Date Type Department Care Team (Latest Contact Info) Description 01/05/2018 Transcribe Orders [address] [place] [address] Adriana Vee PA 15 [facility] [place] [address] [email or web address] STD exposure (Primary Dx); Elevated glucose level Social History Tobacco Use Types Packs/Day Years [...] Trachomatis and Neisseria Gonorrhoeae Nucleic Acid Detection (01/05/2018 2:18 PM EST) CHLAMYDIA TRACHOMATIS Not Detected Not Detected [facility] NEISERIA GONORRHOEAE Not Detected Not Detected [facility] SPECIMEN TYPE URINE [facility] Urine (Urine) 01/05/2018 2:1 8 PM EST 01/05/2018 2:25 PM EST Adriana LESLIE LAB GENERAL ORDERABLES Final Re sult [address] [address] * HIV-1/2 antigen/antibody (01/05/2018 2:18 PM EST) Pathologist [facility] HIV Antibod(ies) NON-REACTI VE NON-REACTI VE [facility] HIV-1 ANTIGEN NON-REACTI VE NON-REACTI VE [facility] Blood 01/05/2018 2:18 PM EST 01/05/2018 2:25 PM EST Adriana LESLIE LAB BLOOD BKR ORDERABLES Final Result Performing Organization Address [facility]/ZIP Co de Phone Number [address] [address] * Hepatitis B core antibody, total (01/05/2018 2:18 PM EST) HEP B CORE AB, TOT Negative Negative [facility] Blood 01/05/2018 2:18 PM EST 01/05/2018 2:25 PM EST Adriana LESLIE LAB BLOOD BKR ORDERABLES Final Result Performing Organization Address [facility]/ZIP Co de Phone Number [address] [address] * Hepatitis C antibody, qualitative (01/05/2018 2:18 PM EST) HCV Negative Negative [facility] Comment: This is a screening test and should be confirmed with molecular testing Blood 01/05/2018 2:18 PM EST 01/05/2018 2:25 PM EST us Adriana Blume PA LAB BLOOD BKR ORDERABLES Final Result Performing Organization Address [facility]/ZIP Co de Phone Number [address] [address] * Hepatitis B surface antigen (01/05/2018 2:18 PM EST) HBV SURFACE ANTIGEN Negative Negative [facility] Blood 01/05/2018 2:18 PM EST 01/05/2018 2:25 PM EST us Adriana Blume PA LAB BLOOD BKR ORDERABLES Final Result Performing Organization Address [facility] Co de Phone Number [address] [address] * Hepatitis B surface antibody (01/05/2018 2:18 PM EST) HBV SURFACE ANTIBODY Negative [facility] Comment: Unvaccinated: Negative Vaccinated: Positive Blood 01/05/2018 2:18 PM EST 01/05/2018 2:25 PM EST us Adriana Blume PA LAB BLOOD BKR ORDERABLES Final Result Performing Organization Address [facility]/ZIP Co de Phone Number [address] [address] * Hemoglobin A1c (01/05/2018 2:18 PM EST) HEMOGLOBIN A1C 4.7 4.3 - 5.8 % [facility] Blood 01/05/2018 2:18 PM EST 01/05/2018 2:25 PM EST us Adriana Blume PA LAB BLOOD BKR ORDERABLES Final Result Performing Organization Address City/[facility]/ZIP Co de Phone Number [address] [place] [address] * HSV type 1,2 antibodies, IgG, IgM (01/05/2018 2:18 PM EST) HSV 1 Ab, IgG Positive Negative [facility] HSV TYPE 2 AB, IGG Negative Negative [facility] HSV IGM, EIA Negative Negative [facility] Comment: (NOTE) ADDITIONAL INFORMATION This test has been modified from the roving can tender's instructions. Its performance characteristics were determined by [facility] in a manner consistent with CLIA requirements. This test has not been cleared or approved by the U.S. Food and Drug Administration. Blood 01/05/2018 2:18 PM EST 01/05/2018 2:26 PM EST us Adriana LESLIE LAB BLOOD ORDERABLES Final Resu lt [facility] [address] [place] [address] documented in this encounter Visit Diagnoses Diagnosis STD exposure- Primary Elevated glucose level documented in this encounter Additional Health Concerns Infection Onset Date Last Indicated Resolved Time CoV-Risk 12/04/2020 12/04/2020 12/04/2020 5:36 PM EDT COVID-19 12/04/2020 12/04/2020 12/25/2020 1:21 AM EDT documented as of this encounter Care Teams Sourcing Engineer Relationship Specialty Start Date End [place] [address] [email or web address] PCP - General Unknown Provider Specialty 02/20/17 09/07/22 Pcp, Unknown PCP - General 09/08/22 09/17/22 Pcp, Unknown PCP - General 09/18/22 02/18/24 Pcp, Unknown PCP - General 02/19/24 Adriana Vee PA [address] [place] [address] [email or web address] Unknown Provider Specialty 09/08/22 Lubna Cabrales MD [address] [place] [address] [email or web address] Insurance Assigned Provider 06/27/18 03/26/19 Lubna Cabrales MD [address] [place] [address] [email or web address] Insurance Assigned Provider 06/30/19 08/30/19 Lubna Cabrales MD [address] [place] [address] [email or web address] Insurance Assigned Provider 03/04/20 12/30/20 documented as of this encounter Additional Source Comments The information contained in this document represents components of the legal health record. It is not the complete legal health record.[facility]
--- OUTSIDE RECORDS SUMMARY | 2025-01-17 14:42 | XMS_ITS | Clinical Summary ---
Author Organization [facility] Address [address] [facility] [address] [place] [phone] Phone Care Team Providers Care Belt Polisher Name Role Phone Adriana Vee Unavailable [phone] Pcp, Unknown Primary Care Provider Unavailabl e Allergies No known active allergies Medications albuterol 90 mcg/actuation inhaler Inhale 2 puffs into the lungs every 4 (four) hours as needed for wheezing. 6.7 g 1 12/15/19 Active ondansetron (ZOFRAN-ODT) 4 MG disintegrating tablet Take 1 tablet (4 mg total) by mouth every 8 (eight) hours as needed. 20 tablet 12/15/19 Active Additional Information Patient not taking.Reported on 02/19/2024 albuterol 90 mcg/actuation inhaler Inhale 2 puffs into the lungs every 6 (six) hours as needed for wheezing. Active predniSONE (DELTASONE) 10 MG tablet Take 1 tablet (10 mg total) by mouth daily with breakfast. 30 tablet 08/12/19 Active Additional Information Patient not taking.Reported on 02/19/2024 pregabalin (LYRICA) 50 MG capsule Take 1 capsule (50 mg total) by mouth 3 (three) times a day. 30 capsule 08/12/19 Active Additional Information Patient not taking.Reported on 02/19/2024 Active Problems No known active problems Social History Tobacco Use Types Packs/Day Years Used Date Smoking Tobacco: Former Cigarettes Passive Smoke Exposure: Never Smokeless Tobacco: Never Tobacco Cessation:Counseling Given: Not Answered Alcohol Use Standard Drinks/Week Comments Not Currently [...] as food, clothing, or medical care? No 02/19/2024 In the past 12 months have y ou been in a relationship with a person who hurts, threatens, or tries to control you? No 02/19/2024 Are you denied basic needs s uch as food, clothing, or medical care? No 02/19/2024 In the past 12 months have y ou been in a relationship with a person who hurts, threatens, or tries to control you? No 02/19/2024 Sex and Gender Information Value Date Recorded Sex Assigned at Male 09/08/2022 12:51 PM EDT Legal Sex Male 12:41 PM EDT Gender Identity Male 09/08/2022 12:51 PM EDT Sexual Orientation Straight 02/19/2024 5: 16 PM EST Last Filed Vital Signs Vital Sign Reading Time Taken Comments Blood Pressure 146/98 02/19/2024 7:07 PM EST Pulse 79 02/19/2024 7:07 PM EST Temperature 36.6 C (97.9 F) 02/19/2024 7:07 PM EST Respiratory Rate 18 02/19/2024 7:07 PM EST Oxygen Saturation 100% 02/19/2024 7:07 PM EST Inhaled Oxygen Concentration - - Weight 102.8 kg (226 lb 11.2 oz) 02/19/2024 5:11 PM EST Height 180.3 cm (5' 11 ) 02/19/2024 5:11 PM EST Body Mass Index 31.62 02/19/2024 5:11 PM EST Plan of Treatment Health Maintenance Due Date Last Done Comments Adult Td,Tdap Booster 1981 DEPRESSION SCREENING 1993 SMOKING Hx and SMOKELESS TOBACCO SCREENING 1994 LIPID PANEL 02/20/2022 02/20/2017 INFLUENZA VACCINE (#1) 2024 COVID-19 VACCINE ( season) 2024 SCREENING FOR DIABETES 02/18/2027 02/19/2024, 2017 HEPATITIS C SCREENING Completed 01/05/2018 , 01/05/2018, 01/05/2018, Additional history exists HIV ONE-TIME SCREENING (18-65 YEARS) Completed 01/05/2018 HEPATITIS A VACCINES Aged Out No long er eligible based on patient's age to complete this topic HIB VACCINES Aged Out No longer eligi ble based on patient's age to complete this topic MENINGOCOCCAL VACCINES (ACWY) Aged Out No longer eligible based on patient's age to complete this topic MENINGOCOCCAL VACCINES (B) Aged Out N o longer eligible based on patient's age to complete this topic PNEUMOCOCCAL VACCINES (0-49 years) Aged Out No longer eligible based on patient's age to complete this topic Medical Devices Implanted Type Area Vacuum Cleaner Repairer Device Identifier Shelf Expiration Date Model / Serial / Lot Repair Bicep Number 2 System Delivery Implant Distal Straight Needle - [id number] Implanted:Qty: 1 on 07/29/2023 by Emilio Castrejon MD at [facility] Left: Arm [employer] 06/24/2027 [id number] / / [id number] Procedures Procedure Name Priority Date/Time Associated Diagnosis Comments HEPATITIS C ANTIBODY, QUALITATIVE Routine 01/05/2018 2:18 PM EST STD exposure Elevated glucose level LIPID PANEL Routine 02/20/2017 2:17 PM EST Routine general medical examination at a health care facility Chest pain, unspecified type Palpitations Dizziness and giddiness from Last 3 Months or Most Recently Relevant to Health Maintenance Results * Hepatitis C antibody, qualitative (01/05/2018 2:18 PM EST) HCV Negative Negative [facility] Comment: This is a screening test and should be confirmed with molecular testing Blood 01/05/2018 2:18 PM EST 01/05/2018 2:25 PM EST us Adriana LESLIE LAB BLOOD BKR ORDERABLES Final Result [address] [address] * (ABNORMAL) Lipid panel (02/20/2017 2:17 PM EST) HDL 51 mg/dL [facility] Comment: Interpretation: Risk Level Males Decreased >45 mg/dL Average 40-45 mg/dL Increased <40 mg/dL CHOLESTEROL 157 0 - 240 mg/dL [facility] TRIGLYCERIDES 177(H) 30 - 160 mg/dL [facility] LDL 71 50 - 129 mg/dL [facility] Comment: LDL levels in terms of risk for coronary heart disease: <100 mg/dL: Optimal 100-129 mg/dL: Near or above optimal 130-159 mg/dL: Borderline high 160-189 mg/dL: High >190 mg/dL: Very High CARDIAC RISK RATIO 3.1(L) 3.4 - 5.0 C [facility] Blood 02/20/2017 2:17 PM EST 02/20/2017 2:25 PM EST Adriana LESLIE LAB BLOOD BKR ORDERABLES Final Result Performing Organization Address [facility]/ZIP Co de Phone Number [address] [address] from Last 3 Months or Most Recently Relevant to Health Maintenance Insurance [facility] PPO [employer] Advance Directives For more information, please contact: [phone] (9AM - 5PM [place], Friday-Friday) * Full Code (Latest Code Status on File) Date Activated Date Inactivated Comments 07/29/2023 6:41 AM Question Answer Comments Code Status Confirmed With: Patient Care Teams Belt Polisher Relationship Specialty Start Date End Date Pcp, Unknown PCP - General 02/19/24 Adriana Vee PA [address] [place] [address] [email or web address] Provider Specialty 09/08/22 Additional Source Comments The information contained in this document represents components of the legal health record. It is not the complete legal health record.[facility]
--- OUTSIDE RECORDS SUMMARY | 2025-01-17 14:42 | XMS_ITS | Encounter Summary ---
Author Organization [facility] Address [address] [place] [phone] Phone Care Team Providers Care Marine Engine Machinist Name Role Phone Pcp, Unknown Primary Care Provider Unavailabl e Adriana Vee Unavailable [phone] Pcp, Unknown Primary Care Provider Unavailabl e Encounter Details Date Type Department Care Team ([facility] st Contact Info) Description 07/29/2023 Procedure Pass OR Admitting Dept - Virtual Department [address] [place] [address] Social History Tobacco Use Types Packs/Day Years [...] on filedocumented in this encounter Care Teams Marine Engine Machinist Relationship Specialty Start Date End Date Pcp, Unknown PCP - General 09/18/22 02/18/24 Pcp, Unknown PCP - General 02/19/24 Adriana [place] [address] [email or web address] Provider Specialty 09/08/22 documented as of this encounter Additional Source Comments The information contained in this document represents components of the legal health record. It is not the complete legal health record.[facility]
== END 2025-01-17 11:54 | disposition home or self-care (01) ==
LOC: HO.HMCFMS 11:18
PROVIDERS: PCP Student in an Organized Health Care Education/Training Program; Visit Provider Student in an Organized Health Care Education/Training Program
DX: E66.3 Overweight (principal); K92.1 Melena; Z83.719 Family history of colon polyps, unspecified; J45.40 Moderate persistent asthma, uncomplicated; K40.90 Unilateral inguinal hernia, without obstruction or gangrene, not specified as recurrent; G47.9 Sleep disorder, unspecified; R03.0 Elevated blood-pressure reading, without diagnosis of hypertension

== ENCOUNTER 2025-02-02 14:17 | Outpatient (AMB) | payer BC, SELFPAY ==
--- NOTE | 2025-02-02 14:28 | A.OFFPC_ITS ---
Vital Signs 02/02/25 14:34 Height 6 ft 0.5 in Weight 230 lb 6 oz BMI 30.8 BP 132/79 Blood Pressure Location Lt brachial Position Sitting Respiration 17 Pulse 94 Pulse Source Pulse Oximeter Temp 98 F Temp Source Oral Pulse Oximetry (%) 98 Oxygen Delivery Method Room Air Intake Visit Reasons: 2 week follow up Intake Note: Patient present for follow up Board Member Required: No Accompanied by: Self / Same As Patient Allergies No Known Allergies Allergy (Verified 02/02/25 14:33) Medication List - Last Reconciled 02/05/25 by Kermit Khan MD albuterol sulfate 90 mcg/actuation (Ventolin HFA) 2 puffs inhalation Q6H PRN budesonide-formoterol 80-4.5 mcg/actuation 2 puffs inhalation BID Tobacco use date assessed: 01/17/25 Dental Screening Dental Screen Date: 01/17/25 HPI HPI Comments History of Present Illness Details History of Present Illness The patient is a 45 year old male presenting with a follow-up visit to review laboratory results. Asthma: The patient reports his asthma is well-controlled. He requires a refill for his albuterol inhaler but did not receive his steroid inhaler at the last pharmacy visit due to it being out of stock. Preventive screening: Colonoscopy: A colonoscopy was recommended a few weeks ago. He reports that the colonoscopy doctor's office has not called him to schedule the procedure. Medications: - Albuterol inhaler for asthma - Steroid inhaler for asthma Diagnostic Results: - White blood cells and red blood cells are normal. - Hemoglobin was slightly elevated, attr ibuted to dehydration. - Sodium, potassium, and kidney function are normal. - Liver function tests are normal. - Triglycerides and total cholesterol ar e normal. - LDL cholesterol was 102 mg/dL on a non -fasting sample. - HDL cholesterol was good. - Vitamin B12 and Vitamin D levels are w ithin normal limits. - Folate and thyroid function are normal . - Urinalysis was normal, though it indic ated dehydration. - Hepatitis B, Hepatitis C, and HIV test s were negative. Past Medical History - Asthma Health Maintenance - Laboratory results were reviewed, show ing overall normal findings with a note of dehydration and a non-fasting LDL of 102 mg/dL, which is considered acceptable. - Screening for Hepatitis B, Hepatitis C , and HIV were negative. - A colonoscopy, recommended a few years prior, was discussed, and the patient will be provided with contact information to schedule it. [facility] Medical History Prehypertension Sleep disturbance Right inguinal hernia Moderate persistent asthma Family history of polyps in the colon Bloody stool Biceps tendon tear Asthma Surgical History S/P ACL surgery Family History Mother Cancer Social History (Updated 02/02/25 @ 14:34 by Gary Martin CMA) Housing: Apartment Alcohol intake: never Patient Tobacco Use Status: Never used Tobacco e-Cigarette/Vaping Use: Never Used Use of substances other than those prescribed or required for medical reasons: No service: No Current occupational status: employed Current occupation: [employer] Current occupational exposures/hazards: Yes Cognitive needs: No Hearing needs: No Vision needs: Yes Questionnaire PHQ-9 Over the last 2 weeks, how often have you been bothered by any of the following problems? 1. Little interest or pleasure in doing things: not at all 2. Feeling down, depressed, or hopeless: not at all 3. Trouble falling or staying asleep, or sleeping too much: not at all 4. Feeling tired or having little energy: not at all 5. Poor appetite or overeating: not at all 6. Feeling bad about yourself - or that you are a failure or have let yourself or your family down: not at all 7. Trouble concentrating on things, such as reading the newspaper or watching television: not at all 8. Moving or speaking so slowly that other people could have noticed. Or the opposite - being so fidgety or restless that you have been moving around a lot more than usual: not at all 9. Thoughts that you would be better off or of hurting yourself in some way: not at all Total score: 0 Depression Screening Interpretation: Negative Depression Screening Done: Yes 43150 - PHQ-9 Billing: Yes Source: Developed by Drs. Graham Hairston, Maria Esther Neely, Major Rocha and colleagues, with an educational kyrie from [employer]. Thrive Questionnaire Date Thrive assessed: 01/17/25 I am a: Patient What is your living situation today?: I have a steady place to live Within the past 12 months, did the food you bought not last and you didn't have the money to get more?: Never true Within the past 12 months, did you worry whether your food would run out before you got money to buy more?: Never true Do you have trouble paying for medicines?: No Do you have trouble getting transportation to medical appointments?: No Do you have trouble paying your heating and electricity bill?: No Do you have trouble taking care of your child, family member or friend?: No Are you currently unemployed and looking for a job?: No Are you interested in more education?: No Please select the resources that you would like help with: None Currently or been in a relationship where the following occur: No concerns reported THRIVE Score: 0 AUDIT C Alcohol Use Questionnaire (AUDIT-C) 1. How often do you have a drink containing alcohol?: Never Total Score: 0 SAMRA-7 AMB Questionnaire SAMRA-7 Date SAMRA - 7 assessed: 01/17/25 Feeling nervous, anxious, or on edge: 0 = Not at all Not being able to stop or control worryin = Not at all Worrying too much about different things: 0 = Not at all Trouble relaxin = Not at all Being so restless that it is hard to sit still: 0 = Not at all Becoming easily annoyed or irritable: 0 = Not at all Feeling afraid as if something awful might happen: 0 = Not at all Total SAMRA-7 score (0-4 normal; 5-9 mild; 10-14 moderate; 15-21 severe): 0 Source: Developed by Drs. Graham Hairston, Maria Esther Neely, Major Rocha and colleagues, with an educational kyrie from [employer]. SAMRA-7 Assessment Billing SAMRA-7 Assessment Tool: SAMRA-7 Assessment 53506 Review of Systems Narrative Review of Systems - Respiratory: Reports asthma is controlled. 10-point ROS reviewed and negative except as noted in HPI Physical exam (Primary Care) Vital Signs: Last Vital Signs Temp 98 F 02/02/25 14:34 Pulse 94 02/02/25 14:34 Resp 17 02/02/25 14:34 BP 132/79 02/02/25 14:34 Pulse Ox 98 02/02/25 14:34 Oxygen Delivery Method Room Air 02/02/25 14:34 BMI result Body Mass Index 30.8 Tobacco/Smoking Status: Tobacco use Status Tobacco use date assessed 01/17/25 02/02/25 14:30 Patient Tobacco Use Status Never used Tobacco 02/02/25 14:34 e-Cigarette/Vaping Use Never Used 02/02/25 14:34 PHQ-9: PHQ-9 Score PHQ-9: Total score 0 02/02/25 14:30 Depression Screening Interpretation: Negative Thrive Assessment: Date of Thrive Assessment Date Thrive assessed 01/17/25 02/02/25 14:30 Currently or been in a relationship where the following occur: No concerns reported Narrative Physical Exam General: Well-appearing, in no acute distress. Vital signs: Within normal limits. HEENT: Normocephalic, atraumatic. PERRLA, EOMI. Conjunctiva clear, sclera anicteric. Oropharynx clear, mucous membranes moist. TMs intact bilaterally. Neck: Supple, no lymphadenopathy, no thyromegaly, no JVD or carotid bruits. Cardiovascular: RRR, normal S1/S2, no murmurs, rubs, or gallops. Peripheral pulses 2+ and symmetric. No edema. Respiratory: Lungs clear to auscultation bilaterally, no wheezes, rales, or rhonchi. Normal effort. Patient reports asthma is well-controlled but requires a refill of albuterol inhaler. Abdomen: Soft, non-tender, non-distended. Normoactive bowel sounds. No hepat osplenomegaly, no masses. MSK: Full range of motion, no joint swelling or deformity. Normal gait. Skin: Warm, dry, intact. No rashes, lesions, or pallor. Neuro: Alert and oriented x3. Cranial nerves II-XII intact. Strength 5/5 throughout. Sensation intact. Reflexes 2+ symmetric. Normal coordination and gait. Psych: Appropriate mood and affect. Normal judgment and insight. Coding Level of Care Code Est Pt Level 3 (22608) Add On Problem Visit Only Diagnoses Moderate persistent asthma J45.40 Family history of polyps in the colon Z83.719 Additional Codes SAMRA-7 Assessment Billing - SAMRA-7 Assessment Tool: SAMRA-7 Assessment 71261 ([id number]) PHQ-9 - 56801 - PHQ-9 Billing: Yes ([id number]) Assessment & Plan Assessment & Plan (1) Moderate persistent asthma: Code(s): J45.40 - Moderate persistent asthma, uncomplicated Category: Medical (2) Family history of polyps in the colon: Code(s): Z83.719 - Family history of colon polyps, unspecified Category: Medical Plan Consent Patient was informed and verbally consented to the use of an ambient scribe for clinic note documentation during this visit. Plan 1. Asthma - The patient's asthma is noted to be well-controlled. - A prescription for an albuterol inhaler will be sent to the pharmacy. 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 2. Review Of Lab Results - All laboratory results, including CBC, CMP, lipid panel, vitamin levels, thyroid, and infectious disease screening, are reviewed and noted to be within or near normal limits. - The slightly elevated hemoglobin is attributed to dehydration, and the non- fasting LDL of 102 mg/dL is not a current concern. - No immediate action is required based on these results. 3. Preventive Screening: Colonoscopy - The patient is advised to contact staff to get the phone number for the colonoscopy provider to schedule the procedure. 4. Follow-Up - The patient is advised to return for a follow-up appointment in six months as needed. Discussion Notes I reviewed the patient's recent laboratory results with him. I explained that his blood counts, kidney function, liver function, and most cholesterol values were good. I noted his LDL was 102, slightly above the target of 100, but reassured him that since he was not fasting, this value is likely lower and not a cause for concern. I also explained that his slightly high hemoglobin was due to dehydration, as indicated by his urine test. His infectious disease screenings were all negative. We discussed his asthma, which is well-controlled, and I agreed to send a prescription for his albuterol inhaler. We also addressed the pending colonoscopy and I instructed him on how to obtain the contact information to schedule it. I recommended a follow-up visit in six months if he wishes. Patient Instructions - Your lab results are good. - There is no need to worry about your cholesterol at this time. - A prescription for your albuterol inhaler will be sent to your pharmacy. - Please stop by the pharmacy to picking table worker your steroid inhaler. - Please ask our staff for the phone number to schedule your colonoscopy. - You can return for a follow-up visit in six months if you would like. Medical Decision Making The patient is a 45-year-old male who presented for a review of his recent laboratory results. The results were largely reassuring, with normal CBC, CMP, and infectious disease screenings. The mildly elevated hemoglobin was attributed to dehydration, and the non-fasting LDL of 102 mg/dL is considered clinically insignificant at this time, as it is expected to be below 100 mg/dL in a fasting state. Therefore, no lipid-lowering therapy is indicated. His asthma is stable, requiring only a refill of his albuterol inhaler. The primary goals of this visit were to provide reassurance based on the favorable lab results and to facilitate necessary health maintenance, including refilling his asthma medication and ensuring he follows up on his pending colonoscopy screening. A follow-up in six months was offered for continued health monitoring. Total Time Statement 20 min Total time spent caring for the patient today includes pre-visit chart review, documentation, review of laboratory and diagnostic imaging results, medication reconciliation, medically necessary evaluation, counseling on diagnoses, care coordination, ordering appropriate tests and medications, review of tests performed by other providers, reporting test results to the patient, and communication with other healthcare providers. Medications: Refilled albuterol sulfate 90 mcg/actuation (Ventolin HFA) 2 puffs inhalation Q6H PRN 8.5 grams 3RF shortness of breath or wheezing
[2025-02-02 14:34] VITALS: BP 132/79; PULSE 94; RESP 17; TEMP 36.6; O2SAT 98; BMI 30.8
--- OUTSIDE RECORDS SUMMARY | 2025-02-02 22:32 | XMS_ITS | Encounter Summary ---
Author Organization [facility] Address [address] [place] [address] [place] [address] Phone Care Team Providers Care Internal Revenue Agent Name Role Phone Adriana Vee Primary Care Provider Pcp, Unknown Primary Care Provider Unavailabl e Pcp, Unknown Primary Care Provider Unavailabl e Adriana Vee Unavailable [phone] Lubna Cabrales MD Unavailable [phone] Lubna Cabrales MD Unavailable Lubna Cabrales MD Unavailable Pcp, Unknown Primary Care Provider Unavailabl e Encounter Details Date Type Department Care Team (Latest Contact Info) Description 01/05/2018 Transcribe Orders [address] [place] [address] Adriana Vee PA [address] [place] [address] [email or web address] STD exposure (Primary Dx); Elevated glucose level [...] EST) CHLAMYDIA TRACHOMATIS Not Detected Not Detected [facility] NEISERIA GONORRHOEAE Not Detected Not Detected [facility] SPECIMEN TYPE URINE [facility] Urine (Urine) 01/05/2018 2:1 8 PM EST 01/05/2018 2:25 PM EST Adriana LESLIE LAB GENERAL ORDERABLES Final Re sult [address] [address] * HIV-1/2 antigen/antibody (01/05/2018 2:18 PM EST) Pathologist [facility] [place] HIV Antibod(ies) NON-REACTI VE NON-REACTI VE [facility] HIV-1 ANTIGEN NON-REACTI VE NON-REACTI VE [facility] Blood 01/05/2018 2:18 PM EST 01/05/2018 2:25 PM EST Adriana LESLIE LAB BLOOD BKR ORDERABLES Final Result Performing Organization Address [facility]/ZIP Co de Phone Number [address] [address] * Hepatitis B core antibody, total (01/05/2018 2:18 PM EST) HEP B CORE AB, TOT Negative Negative [facility] Blood 01/05/2018 2:18 PM EST 01/05/2018 2:25 PM EST Adriana LESLIE LAB BLOOD BKR ORDERABLES Final Result Performing Organization Address [facility]/ZIP Co de Phone Number [address] [address] * Hepatitis C antibody, qualitative (01/05/2018 2:18 PM EST) HCV Negative Negative [facility] Comment: This is a screening test and should be confirmed with molecular testing Blood 01/05/2018 2:18 PM EST 01/05/2018 2:25 PM EST us Adriana Blume PA LAB BLOOD BKR ORDERABLES Final Result Performing Organization Address [facility]/ZIP Co de Phone Number [address] [address] * Hepatitis B surface antigen (01/05/2018 2:18 PM EST) HBV SURFACE ANTIGEN Negative Negative [facility] Blood 01/05/2018 2:18 PM EST 01/05/2018 2:25 PM EST us Adriana Blume PA LAB BLOOD BKR ORDERABLES Final Result Performing Organization Address [facility] Co de Phone Number [address] [address] * Hepatitis B surface antibody (01/05/2018 2:18 PM EST) HBV SURFACE ANTIBODY Negative [facility] Comment: Unvaccinated: Negative Vaccinated: Positive Blood 01/05/2018 2:18 PM EST 01/05/2018 2:25 PM EST us Adriana Blume PA LAB BLOOD BKR ORDERABLES Final Result Performing Organization Address [facility]/ZIP Co de Phone Number [address] [address] * Hemoglobin A1c (01/05/2018 2:18 PM EST) HEMOGLOBIN A1C 4.7 4.3 - 5.8 % [facility] Blood 01/05/2018 2:18 PM EST 01/05/2018 2:25 PM EST us Adriana Blume PA LAB BLOOD BKR ORDERABLES Final Result Performing Organization Address City/[facility]/ZIP Co de Phone Number [address] [place] [address] * HSV type 1,2 antibodies, IgG, IgM (01/05/2018 2:18 PM EST) HSV 1 Ab, IgG Positive Negative [facility] HSV TYPE 2 AB, IGG Negative Negative [facility] HSV IGM, EIA Negative Negative [facility] Comment: (NOTE) ADDITIONAL INFORMATION This test has been modified from the mixer diamond powder's instructions. Its performance characteristics were determined by [facility] in a manner consistent with CLIA requirements. This test has not been cleared or approved by the U.S. Food and Drug Administration. Blood 01/05/2018 2:18 PM EST 01/05/2018 2:26 PM EST us Adriana LESLIE LAB BLOOD ORDERABLES Final Resu lt [facility] [address] [place] [address] documented in this encounter Visit Diagnoses Diagnosis STD exposure- Primary Elevated glucose level documented in this encounter Additional Health Concerns Infection Onset Date Last Indicated Resolved Time CoV-Risk 12/04/2020 12/04/2020 12/04/2020 5:36 PM EDT COVID-19 12/04/2020 12/04/2020 12/25/2020 1:21 AM EDT documented as of this encounter Care Teams Internal Revenue Agent Relationship Specialty Start Date End [place] [address] [email or web address] PCP - General Unknown Provider Specialty 02/20/17 09/07/22 Pcp, Unknown PCP - General 09/08/22 09/17/22 Pcp, Unknown PCP - General 09/18/22 02/18/24 Pcp, Unknown PCP - General 02/19/24 Adriana Vee PA [address] [place] [address] [email or web address] Unknown Provider Specialty 09/08/22 Lubna Cabrales MD [address] [place] [address] [email or web address] Insurance Assigned Provider 06/27/18 03/26/19 Lubna Cabrales MD [address] [place] [address] [email or web address] Insurance Assigned Provider 06/30/19 08/30/19 Lubna Cabrales MD [address] [place] [address] [email or web address] Insurance Assigned Provider 03/04/20 12/30/20 documented as of this encounter Additional Source Comments The information contained in this document represents components of the legal health record. It is not the complete legal health record.[facility]
--- OUTSIDE RECORDS SUMMARY | 2025-02-02 22:32 | XMS_ITS | Clinical Summary ---
Author Organization [facility] Address [address] [facility] [address] [place] [address] Phone Care Team Providers Care Vice President Of Engineering Name Role Phone Adriana Vee Unavailable [phone] Pcp, Unknown Primary Care Provider Unavailabl [...] this topic Medical Devices Implanted Type Area Tunnel Worker Device Identifier Shelf Expiration Date Model / Serial / Lot Repair Bicep Number 2 System Delivery Implant Distal Straight Needle - [id number] Implanted:Qty: 1 on 07/29/2023 by Emilio Castrejon MD at [facility] Left: Arm [employer] 06/24/2027 [id number] / / [id number] Procedures Procedure Name Priority Date/Time Associated Diagnosis [...] (01/05/2018 2:18 PM EST) HCV Negative Negative [facility] Comment: This is a screening test and should be confirmed with molecular testing Blood 01/05/2018 2:18 PM EST 01/05/2018 2:25 PM EST us Adriana LESLIE LAB BLOOD BKR ORDERABLES Final Result [address] [address] * (ABNORMAL) Lipid panel (02/20/2017 2:17 PM EST) HDL 51 mg/dL [facility] Comment: Interpretation: Risk Level Males Decreased >45 mg/dL Average 40-45 mg/dL Increased <40 mg/dL CHOLESTEROL 157 0 - 240 mg/dL [facility] TRIGLYCERIDES 177(H) 30 - 160 mg/dL [facility] LDL 71 50 - 129 mg/dL [facility] Comment: LDL levels in terms of risk for coronary heart disease: <100 mg/dL: Optimal 100-129 mg/dL: Near or above optimal 130-159 mg/dL: Borderline high 160-189 mg/dL: High >190 mg/dL: Very High CARDIAC RISK RATIO 3.1(L) 3.4 - 5.0 [facility] Blood 02/20/2017 2:17 PM EST 02/20/2017 2:25 PM EST Adriana LESLIE LAB BLOOD BKR ORDERABLES Final Result Performing Organization Address [facility]/ZIP Co de Phone Number [address] [address] from Last 3 Months or Most Recently Relevant to Health Maintenance Insurance [facility] PPO [employer] Advance Directives For more information, please contact: [phone] (9AM - 5PM [place], Friday-Friday) * Full Code (Latest Code Status on File) Date Activated Date Inactivated Comments 07/29/2023 6:41 AM Question Answer Comments Code Status Confirmed With: Patient Care Teams Vice President Of Engineering Relationship Specialty Start Date End Date Pcp, Unknown PCP - General 02/19/24 Adriana Vee PA [address] [place] [address] [email or web address] Provider Specialty 09/08/22 Additional Source Comments The information contained in this document represents components of the legal health record. It is not the complete legal health record.[facility]
--- OUTSIDE RECORDS SUMMARY | 2025-02-02 22:32 | XMS_ITS | Encounter Summary ---
Author Organization [facility] Address [address] [facility] [address] [place] [address] Phone Care Team Providers Care Manufacturing Accountant Name Role Phone Pcp, Unknown Primary Care Provider Unavailabl e Adriana Vee Unavailable [phone] Pcp, Unknown Primary Care Provider Unavailabl e Encounter Details Date Type Department Care Team ([facility] st Contact Info) Description 07/29/2023 Procedure Pass OR Admitting Dept - Virtual Department [address] [place] [address] Social History Tobacco Use Types Packs/Day Years [...] on filedocumented in this encounter Care Teams Manufacturing Accountant Relationship Specialty Start Date End Date Pcp, Unknown PCP - General 09/18/22 02/18/24 Pcp, Unknown PCP - General 02/19/24 Adriana [place] [address] [email or web address] Unknown Provider Specialty 09/08/22 documented as of this encounter Additional Source Comments The information contained in this document represents components of the legal health record. It is not the complete legal health record.[facility]
--- OUTSIDE RECORDS SUMMARY | 2025-02-02 22:32 | XMS_ITS | Encounter Summary ---
Author Organization [facility] Address [address] [place] [address] [place] [address] Phone Care Team Providers Care Inspector Bullet Slugs Name Role Phone Adriana Vee Primary Care Provider Pcp, Unknown Primary Care Provider Unavailabl e Pcp, Unknown Primary Care Provider Unavailabl e Adriana Vee Unavailable [phone] Lubna Cabrales MD Unavailable [phone] Lubna Cabrales MD Unavailable [phone] Lubna Cabrales MD Unavailable [phone] Pcp, Unknown Primary Care Provider Unavailabl e Encounter Details Date Type Department Care Team (Latest Contact Info) Description 02/20/2017 Transcribe Orders [facility] [address] [place] [address] Adriana Vee PA [address] [place] [address] [email or web address] Routine general medical examination at a health [...] EST) CHLAMYDIA TRACHOMATIS Not Detected Not Detected [facility] NEISERIA GONORRHOEAE Not Detected Not Detected [facility] SPECIMEN TYPE URINE [facility] Urine (Urine) 02/20/2017 3:5 5 PM EST 02/20/2017 3:57 PM EST Adriana LESLIE LAB GENERAL ORDERABLES Final Re sult Performing Organization Address [facility] Co de Phone Number [address] [address] * (ABNORMAL) Urinalysis (02/20/2017 3:55 PM EST) COLOR Yellow Yellow [facility] CLARITY CLOUDY [facility] GLUCOSE Negative Negative [facility] BILI Negative Negative [facility] KETONES Trace(A) Negative [facility] SPECIFIC GRAVITY 1.015 1.005 - 1.030 [facility] BLOOD Negative Negative [facility] PH 7.5 5.0 - 8.0 [facility] Protein-UA Negative Negative [facility] NITRITE Negative Negative [facility] Leukocyte esterase, ur Negative Negative [facility] Urine (Urine) 02/20/2017 3:5 5 PM EST 02/20/2017 3:57 PM EST Adriana LESLIE LAB URINE ORDERABLES Final Resu lt Performing Organization Address [facility] Co de Phone Number [address] [address] * Syphilis antibody screen (02/20/2017 2:17 PM EST) RPR NON-REACTIV E NON-REACTI VE [facility] Blood 02/20/2017 2:17 PM EST 02/20/2017 2:25 PM EST us Adriana Blume PA LAB BLOOD BKR ORDERABLES Final Result Performing Organization Address City/[facility]/ZIP Co de Phone Number [address] [address] * HIV-1/2 antigen/antibody (02/20/2017 2:17 PM EST) HIV Antibod(ies) NON-REACTI VE NON-REACTI VE [facility] HIV-1 ANTIGEN NON-REACTI VE NON-REACTI VE [facility] Blood 02/20/2017 2:17 PM EST 02/20/2017 2:25 PM EST us Adriana Blume PA LAB BLOOD BKR ORDERABLES Final Result Performing Organization Address [facility]/ZIP Co de Phone Number [address] [address] * Hepatitis B core antibody, total (02/20/2017 2:17 PM EST) HEP B CORE AB, TOT Negative Negative [facility] Blood 02/20/2017 2:17 PM EST 02/20/2017 2:25 PM EST us Adriana ShelfFlipume PA LAB BLOOD BKR ORDERABLES Final Result Performing Organization Address City/[facility]/ZIP Co de Phone Number [address] [address] * Hepatitis C antibody, qualitative (02/20/2017 2:17 PM EST) HCV Negative Negative [facility] Comment: This is a screening test and should be confirmed with molecular testing Blood 02/20/2017 2:17 PM EST 02/20/2017 2:25 PM EST us Adriana Blume PA LAB BLOOD BKR ORDERABLES Final Result Performing Organization Address City/[facility]/ZIP Co de Phone Number [address] [address] * Hepatitis B surface antibody (02/20/2017 2:17 PM EST) Pathologist [facility] HBV SURFACE ANTIBODY Negative [facility] Comment: Unvaccinated: Negative Vaccinated: Positive Blood 02/20/2017 2:17 PM EST 02/20/2017 2:25 PM EST [facility] LAB BLOOD BKR ORDERABLES Final Result Performing Organization Address [facility] de Phone Number [address] [address] * Hepatitis B surface antigen (02/20/2017 2:17 PM EST) Pathologist [facility] HBV SURFACE ANTIGEN Negative Negative [facility] Blood 02/20/2017 2:17 PM EST 02/20/2017 2:25 PM EST [facility] LAB BLOOD BKR ORDERABLES Final Result Performing Organization Address [facility] de Phone Number [address] [address] * (ABNORMAL) CBC and differential (02/20/2017 2:17 PM EST) Pathologist [facility] WBC 7.66 3.40 - 11.20 K/uL [facility] RBC 4.57 4.50 - 5.50 M/uL [facility] HGB 15.0 13.0 - 17.0 g/dL [facility] HCT 41.0 40.0 - 51.0 % [facility] PLT 251 130 - 400 K/uL [facility] MCV 89.7 79.0 - 98.0 [facility] MCH 32.8 27.0 - 34.8 pg [facility] MCHC 36.6(H) 31.5 - 36.0 g/dL [facility] RDW 11.8 10.8 - 14.6 % [facility] MPV 10.2 9.4 - 12.4 [facility] NRBC 0.00 /100 WBCs [facility] ABSOLUTE NRBC 0.00 K/uL [facility] DIFF METHOD Auto [facility] NEUTS 68.6 45.30 - 77.70 % [facility] LYMPHS 22.5 12.30 - 39.70 % [facility] MONOS 6.7 4.10 - 12.80 % [facility] EOS 1.6 0 - 7.2 % [facility] BASOS 0.5 0 - 2.80 % [facility] Granulocytes, immature (%) 0.1 0.0 - 0.9 % [facility] ABSOLUTE NEUTS 5.26 1.40 - 7.70 K/uL [facility] ABSOLUTE LYMPHS 1.72 0.60 - 3.20 K/uL [facility] ABSOLUTE MONOS 0.51 0.11 - 0.59 K/uL [facility] ABSOLUTE EOS 0.12 0.01 - 0.50 K/uL [facility] ABSOLUTE BASOS 0.04 0.00 - 0.08 K/uL [facility] Granulocytes, immature 0.01 0.00 - 0.05 K/uL [facility] Blood 02/20/2017 2:17 PM EST 02/20/2017 2:25 PM EST us Adriana LESLIE LAB BLOOD BKR ORDERABLES Final Result Performing Organization Address City/State/[facility] Co de Phone Number [address] [address] * (ABNORMAL) Lipid panel (02/20/2017 2:17 PM EST) HDL 51 mg/dL [facility] Comment: Interpretation: Risk Level Males Decreased >45 mg/dL Average 40-45 mg/dL Increased <40 mg/dL CHOLESTEROL 157 0 - 240 mg/dL [facility] TRIGLYCERIDES 177(H) 30 - 160 mg/dL [facility] LDL 71 50 - 129 mg/dL [facility] Comment: LDL levels in terms of risk for coronary heart disease: <100 mg/dL: Optimal 100-129 mg/dL: Near or above optimal 130-159 mg/dL: Borderline high 160-189 mg/dL: High >190 mg/dL: Very High CARDIAC RISK RATIO 3.1(L) 3.4 - 5.0 [facility] Blood 02/20/2017 2:17 PM EST 02/20/2017 2:25 PM EST [facility] LAB BLOOD BKR ORDERABLES Final Result [address] [address] * TSH (02/20/2017 2:17 PM EST) TSH 1.46 0.27 - 4.20 uIU/mL [facility] Blood 02/20/2017 2:17 PM EST 02/20/2017 2:25 PM EST [facility] LAB BLOOD BKR ORDERABLES Final Result Performing Organization Address City/[facility] Co de Phone Number [address] [address] * (ABNORMAL) Comprehensive metabolic panel (02/20/2017 2:17 PM EST) SODIUM 139 133 - 146 mmol/L [facility] POTASSIUM 3.6 3.3 - 5.1 mmol/L [facility] CHLORIDE 98 96 - 108 mmol/L [facility] CO2 28 21 - 35 mmol/L [facility] BUN 17 6 - 19 mg/dL [facility] CREATININE 0.60 0.5 - 1.5 mg/dL [facility] GLUCOSE 145(H) 70 - 99 mg/dL [facility] ALBUMIN 4.7 3.9 - 4.8 g/dL [facility] TOTAL PROTEIN 7.5 6.5 - 8.0 g/dL [facility] CALCIUM 9.2 8.4 - 10.3 mg/dL [facility] ALKALINE PHOSPHATASE 61 39 - 117 U/L [facility] TOTAL BILIRUBIN 0.6 0 - 1.2 mg/dL [facility] AST 25 0 - 37 U/L [facility] ALT 19 0 - 40 U/L [facility] GLOBULIN 2.8 1 - 4.8 g/dL [facility] EGFR >60 60 - 1000 mL/min/1.7 3m2 [facility] Comment:Abnormal if <60. If patient is -Danish, multiply the result by 1.21. ANION GAP 17 10 - 20 mmol/L [facility] Blood 02/20/2017 2:17 PM EST 02/20/2017 2:25 PM EST us Adriana LESLIE LAB BLOOD BKR ORDERABLES Final Result Performing Organization Address City/State/[facility] Co de Phone Number [address] [address] documented in this encounter Visit Diagnoses Diagnosis Routine general medical examination at a health care facility- Primary Chest pain, unspecified type Palpitations Dizziness and giddiness documented in this encounter Additional Health Concerns Infection Onset Date Last Indicated Resolved Time CoV-Risk 12/04/2020 12/04/2020 12/04/2020 5:36 PM EDT COVID-19 12/04/2020 12/04/2020 12/25/2020 1:21 AM EDT documented as of this encounter Care Teams Inspector Bullet Slugs Relationship Specialty Start Date End Date Adriana Vee PA [address] [place] [address] [email or web address] PCP - General Unknown Provider Specialty 02/20/17 09/07/22 Pcp, Unknown PCP - General 09/08/22 09/17/22 Pcp, Unknown PCP - General 09/18/22 02/18/24 Pcp, Unknown PCP - General 02/19/24 Adriana Vee PA [address] [place] [address] [email or web address] Unknown Provider Specialty 09/08/22 Lubna Cabrales MD [address] [place] [address] Insurance Assigned Provider 06/27/18 03/26/19 Lubna Cabrales MD [address] [place] [address] [email or web address] Insurance Assigned Provider 06/30/19 08/30/19 Lubna Cabrales MD [address] [place] [address] [email or web address] Insurance Assigned Provider 03/04/20 12/30/20 documented as of this encounter Additional Source Comments The information contained in this document represents components of the legal health record. It is not the complete legal health record.[facility]
--- OUTSIDE RECORDS SUMMARY | 2025-02-02 22:32 | XMS_ITS | Encounter Summary ---
Author Organization [facility] Address [address] [facility] [address] [place] [address] Phone Care Team Providers Care Sugar Grinder Name Role Phone Pcp, Unknown Primary Care Provider Unavailabl e Adriana Vee Unavailable [phone] Pcp, Unknown Primary Care Provider Unavailabl e Encounter Details Date Type Department Care Team (Late st Contact Info) Description 07/16/2023 Procedure Pass [address] [place] [address] Social History Tobacco Use Types Packs/Day Years [...] on filedocumented in this encounter Care Teams Sugar Grinder Relationship Specialty Start Date End Date Pcp, Unknown PCP - General 09/18/22 02/18/24 Pcp, Unknown PCP - General 02/19/24 Adri[place] [address] [email or web address] Unknown Provider Specialty 09/08/22 documented as of this encounter Additional Source Comments The information contained in this document represents components of the legal health record. It is not the complete legal health record.[facility]
== END 2025-02-02 15:07 | disposition home or self-care (01) ==
LOC: HO.HMCFMS 14:18
PROVIDERS: Visit Provider Student in an Organized Health Care Education/Training Program
DX: J45.40 Moderate persistent asthma, uncomplicated (principal); Z83.719 Family history of colon polyps, unspecified

== ENCOUNTER → 2025-02-02 14:17 | Outpatient (BNVA) | payer BC, SELFPAY | PROVIDERS: Visit Provider Student in an Organized Health Care Education/Training Program | DX: J45.40 Moderate persistent asthma, uncomplicated (principal); Z83.719 Family history of colon polyps, unspecified | CPT/HCPCS: 96127 ==

== ENCOUNTER 2025-02-14 13:07 | Outpatient (AMB) | payer BC, SELFPAY ==
--- NOTE | 2025-02-14 13:19 | A.OFFVIS_ITS ---
Vital Signs 3 02/14/25 13:30 Height 6 ft 0.5 in Weight 229 lb 8 oz BMI 30.7 BP 130/72 Blood Pressure Location Lt brachial Position Sitting Intake Visit Reasons: unilateral inguinial hernia Intake Note: Patient is seen in office for evaluation of a right inguinal hernia. Pt c/o: hernia in the right groin for yrs, pops out at times, denies pain, d/c/n/v, does heavy lifting at work Zero [employer] Barrel Builder Required: No Accompanied by: Self / Same As Patient Allergies No Known Allergies Allergy (Verified 02/14/25 13:24) Medication List - Last Reconciled 02/14/25 by Giuliano Hernandez MD albuterol sulfate 90 mcg/actuation (Ventolin HFA) 2 puffs inhalation Q6H PRN budesonide-formoterol 80-4.5 mcg/actuation 2 puffs inhalation BID HPI Comments Details: 45-year-old male patient presenting for evaluation of a right inguinal hernia. This has been present for least 5 years and was noted to have gradually develop without an inciting event. 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 He denies any nausea, vomiting, fever, chills, diarrhea, or constipation. The hernia easily reduces when he lays down but does protrude when he is up and walking. He denies any previous hernia surgeries and denies any symptoms on the left side. He presents today to discuss repair of this right inguinal hernia. [facility] Medical History Prehypertension Sleep disturbance Right inguinal hernia Moderate persistent asthma Family history of polyps in the colon Bloody stool Biceps tendon tear Asthma Surgical History S/P ACL surgery Family History Mother Cancer Social History Housing: Apartment Alcohol intake: never Patient Tobacco Use Status: Never used Tobacco e-Cigarette/Vaping Use: Never Used service: No Current occupational status: employed Current occupation: analytic manager Current occupational exposures/hazards: Yes Cognitive needs: No Hearing needs: No Vision needs: Yes Review of Systems Const All systems reviewed & are unremarkable except as noted in HPI and below Physical Exam Const General: cooperative and no acute distress Nutritional Appearance: well nourished Orientation/consciousness: patient oriented x3 Limitations: no limitations HEENT Head: Yes normocephalic and Yes atraumatic Ears: hearing grossly normal bilaterally Resp Effort & Inspection: normal respiratory effort, no audible wheezes, no cough and no respiratory distress Cardio Jugular venous distension: no JVD GI Other: Soft, nondistended, palpable right inguinal hernia noted in the standing position which increases in size with Valsalva maneuvers but reduces with light pressure and 1 in the supine position. No hernia noted in the left side. Inspection: Yes normal to inspection Abdomen image: 2 1. Site of right inguinal hernia Skin Other: Warm, dry, no rash Neuro General: patient oriented x3 Extrem General: Yes no clubbing, cyanosis or edema Assessment & Plan Assessment & Plan (1) Right inguinal hernia: Code(s): K40.90 - Unilateral inguinal hernia, without obstruction or gangrene, not specified as recurrent Category: Medical Plan 45-year-old male patient presenting for evaluation of a lump in the right groin. This has developed over the past 5 years and has gradually increased in size. He is able to reduce the lump with light pressure. He reports occasional discomfort denies any nausea, vomiting, fever, chills, diarrhea or constipation. On examination he does have a reducible right inguinal hernia with no evidence of a left inguinal hernia. I recommended repair of this right inguinal hernia with mesh and after discussion of the procedure, risks, and alternatives, he consents to the surgery. Orders: Referrals 2 General Surgery Procedure Notification K40.90 - Unilateral inguinal hernia, without obstruction or gangrene, not specified as recurrent Coding Level of Care Code New Pt Level 4 (70895) Diagnoses Right inguinal hernia K40.90
[2025-02-14 13:30] VITALS: BP 130/72; BMI 30.7
--- OUTSIDE RECORDS SUMMARY | 2025-02-14 16:29 | XMS_ITS | Encounter Summary ---
Author Organization [facility] Address [address] [facility] [address] [place] [phone] Phone Care Team Providers Care Flume Ride Operator Name Role Phone Pcp, Unknown Primary Care Provider Unavailabl e Adriana Vee Unavailable [phone] Pcp, Unknown Primary Care Provider Unavailabl e Encounter Details Date Type Department Care Team ([facility] st Contact Info) Description 07/29/2023 Procedure Pass OR Admitting Dept - Virtual Department [address] [place] [address] Social History Tobacco Use Types Packs/Day Years [...] on filedocumented in this encounter Care Teams Flume Ride Operator Relationship Specialty Start Date End Date Pcp, Unknown PCP - General 09/18/22 02/18/24 Pcp, Unknown PCP - General 02/19/24 Adriana [place] [address] [email or web address] Provider Specialty 09/08/22 documented as of this encounter Additional Source Comments The information contained in this document represents components of the legal health record. It is not the complete legal health record.[facility]
--- OUTSIDE RECORDS SUMMARY | 2025-02-14 16:29 | XMS_ITS | Encounter Summary ---
Author Organization [facility] Address [address] [place] [address] [place] [address] Phone Care Team Providers Care Almond Roaster Name Role Phone Adriana Vee Primary Care Provider [phone] Pcp, Unknown Primary Care Provider Unavailabl e Pcp, Unknown Primary Care Provider Unavailabl e Adriana Vee Unavailable [phone] Lubna Cabrales MD Unavailable Lubna Cabrales MD Unavailable [phone] Lubna Cabrales MD Unavailable Pcp, Unknown Primary Care Provider Unavailabl e Encounter Details Date Type Department Care Team (Latest Contact Info) Description 01/05/2018 Transcribe Orders [address] [place] [address] Adriana Vee PA [address] [facility] [place] [address] [email or web address] STD exposure (Primary Dx); Elevated glucose level [...] EST) CHLAMYDIA TRACHOMATIS Not Detected Not Detected [facility] NEISERIA GONORRHOEAE Not Detected Not Detected [facility] SPECIMEN TYPE URINE [facility] Urine (Urine) 01/05/2018 2:1 8 PM EST 01/05/2018 2:25 PM EST Adriana LESLIE LAB GENERAL ORDERABLES Final Re sult [address] [address] * HIV-1/2 antigen/antibody (01/05/2018 2:18 PM EST) Pathologist [facility] HIV Antibod(ies) NON-REACTI VE NON-REACTI VE [facility] HIV-1 ANTIGEN NON-REACTI VE NON-REACTI VE [facility] Blood 01/05/2018 2:18 PM EST 01/05/2018 2:25 PM EST Adriana LESLIE LAB BLOOD BKR ORDERABLES Final Result Performing Organization Address [facility]/ZIP Co de Phone Number [address] [address] * Hepatitis B core antibody, total (01/05/2018 2:18 PM EST) HEP B CORE AB, TOT Negative Negative [facility] Blood 01/05/2018 2:18 PM EST 01/05/2018 2:25 PM EST Adriana LESLIE LAB BLOOD BKR ORDERABLES Final Result Performing Organization Address [facility]/ZIP Co de Phone Number [address] [address] * Hepatitis C antibody, qualitative (01/05/2018 2:18 PM EST) HCV Negative Negative [facility] Comment: This is a screening test and should be confirmed with molecular testing Blood 01/05/2018 2:18 PM EST 01/05/2018 2:25 PM EST us Adriana Blume PA LAB BLOOD BKR ORDERABLES Final Result Performing Organization Address [facility]/ZIP Co de Phone Number [address] [address] * Hepatitis B surface antigen (01/05/2018 2:18 PM EST) HBV SURFACE ANTIGEN Negative Negative [facility] Blood 01/05/2018 2:18 PM EST 01/05/2018 2:25 PM EST us Adriana Blume PA LAB BLOOD BKR ORDERABLES Final Result Performing Organization Address [facility] Co de Phone Number [address] [address] * Hepatitis B surface antibody (01/05/2018 2:18 PM EST) HBV SURFACE ANTIBODY Negative [facility] Comment: Unvaccinated: Negative Vaccinated: Positive Blood 01/05/2018 2:18 PM EST 01/05/2018 2:25 PM EST us Adriana Blume PA LAB BLOOD BKR ORDERABLES Final Result Performing Organization Address [facility]/ZIP Co de Phone Number [address] [address] * Hemoglobin A1c (01/05/2018 2:18 PM EST) HEMOGLOBIN A1C 4.7 4.3 - 5.8 % [facility] Blood 01/05/2018 2:18 PM EST 01/05/2018 2:25 PM EST us Adriana Blume PA LAB BLOOD BKR ORDERABLES Final Result Performing Organization Address City/[facility]/ZIP Co de Phone Number [address] [place] [address] * HSV type 1,2 antibodies, IgG, IgM (01/05/2018 2:18 PM EST) HSV 1 Ab, IgG Positive Negative [facility] HSV TYPE 2 AB, IGG Negative Negative [facility] HSV IGM, EIA Negative Negative [facility] Comment: (NOTE) ADDITIONAL INFORMATION This test has been modified from the harbormaster's instructions. Its performance characteristics were determined by [facility] in a manner consistent with CLIA requirements. This test has not been cleared or approved by the U.S. Food and Drug Administration. Blood 01/05/2018 2:18 PM EST 01/05/2018 2:26 PM EST us Adriana LESLIE LAB BLOOD ORDERABLES Final Resu lt [facility] [address] [place] [address] documented in this encounter Visit Diagnoses Diagnosis STD exposure- Primary Elevated glucose level documented in this encounter Additional Health Concerns Infection Onset Date Last Indicated Resolved Time CoV-Risk 12/04/2020 12/04/2020 12/04/2020 5:36 PM EDT COVID-19 12/04/2020 12/04/2020 12/25/2020 1:21 AM EDT documented as of this encounter Care Teams Almond Roaster Relationship Specialty Start Date End Date [place] [address] [email or web address] PCP - General Unknown Provider Specialty 02/20/17 09/07/22 Pcp, Unknown PCP - General 09/08/22 09/17/22 Pcp, Unknown PCP - General 09/18/22 02/18/24 Pcp, Unknown PCP - General 02/19/24 Adriana Vee PA [address] [place] [address] [email or web address] Unknown Provider Specialty 09/08/22 Lubna Cabrales MD [address] [place] [address] [email or web address] Insurance Assigned Provider 06/27/18 03/26/19 Lubna Cabrales MD [address] [place] [address] [email or web address] Insurance Assigned Provider 06/30/19 08/30/19 Lubna Cabrales MD [address] [place] [address] [email or web address] Insurance Assigned Provider 03/04/20 12/30/20 documented as of this encounter Additional Source Comments The information contained in this document represents components of the legal health record. It is not the complete legal health record.[facility]
--- OUTSIDE RECORDS SUMMARY | 2025-02-14 16:30 | XMS_ITS | Clinical Summary ---
Author Organization [facility] Address [address] [facility] [address] [place] [address] Phone Care Team Providers Care Human Resources Admin Name Role Phone Adriana Vee Unavailable [phone] Pcp, Unknown Primary Care Provider Unavailabl [...] this topic Medical Devices Implanted Type Area Dispatcher Street Department Device Identifier Shelf Expiration Date Model / Serial / Lot Repair Bicep Number 2 System Delivery Implant Distal Straight Needle - [id number] Implanted:Qty: 1 on 07/29/2023 by Emilio Castrejon MD at [facility] Left: Arm [employer] 06/24/2027 [id number] / / [id number] Procedures Procedure Name Priority Date/Time Associated Diagnosis [...] (01/05/2018 2:18 PM EST) HCV Negative Negative [facility] Comment: This is a screening test and should be confirmed with molecular testing Blood 01/05/2018 2:18 PM EST 01/05/2018 2:25 PM EST us Adriana LESLIE LAB BLOOD BKR ORDERABLES Final Result [address] [address] * (ABNORMAL) Lipid panel (02/20/2017 2:17 PM EST) HDL 51 mg/dL [facility] Comment: Interpretation: Risk Level Males Decreased >45 mg/dL Average 40-45 mg/dL Increased <40 mg/dL CHOLESTEROL 157 0 - 240 mg/dL [facility] TRIGLYCERIDES 177(H) 30 - 160 mg/dL [facility] LDL 71 50 - 129 mg/dL [facility] Comment: LDL levels in terms of risk for coronary heart disease: <100 mg/dL: Optimal 100-129 mg/dL: Near or above optimal 130-159 mg/dL: Borderline high 160-189 mg/dL: High >190 mg/dL: Very High CARDIAC RISK RATIO 3.1(L) 3.4 - 5.0 C [facility] Blood 02/20/2017 2:17 PM EST 02/20/2017 2:25 PM EST Adriana LESLIE LAB BLOOD BKR ORDERABLES Final Result Performing Organization Address [facility]/ZIP Co de Phone Number [address] [address] from Last 3 Months or Most Recently Relevant to Health Maintenance Insurance [facility] PPO [employer] Advance Directives For more information, please contact: [phone] (9AM - 5PM [place], Friday-Friday) * Full Code (Latest Code Status on File) Date Activated Date Inactivated Comments 07/29/2023 6:41 AM Question Answer Comments Code Status Confirmed With: Patient Care Teams Human Resources Admin Relationship Specialty Start Date End Date Pcp, Unknown PCP - General 02/19/24 Adriana Vee PA [address] [place] [address] [email or web address] Unknown Provider Specialty 09/08/22 Additional Source Comments The information contained in this document represents components of the legal health record. It is not the complete legal health record.[facility]
--- OUTSIDE RECORDS SUMMARY | 2025-02-14 16:30 | XMS_ITS | Encounter Summary ---
Author Organization [facility] Address [address] [place] [address] [place] [address] Phone Care Team Providers Care Cardiac Technologist Name Role Phone Adriana Vee Primary Care Provider Pcp, Unknown Primary Care Provider Unavailabl e Pcp, Unknown Primary Care Provider Unavailabl e Adriana Vee Unavailable [phone] Lubna Cabrales MD Unavailable Lubna Cabrales MD Unavailable Lubna Cabrales MD Unavailable Pcp, Unknown Primary Care Provider Unavailabl e Encounter Details Date Type Department Care Team (Latest Contact Info) Description 02/20/2017 Transcribe Orders [facility] [address] [place] [address] Adriana Vee PA [address] [place] [address] [email or web address] Routine general medical examination at a health [...] EST) CHLAMYDIA TRACHOMATIS Not Detected Not Detected [facility] NEISERIA GONORRHOEAE Not Detected Not Detected [facility] SPECIMEN TYPE URINE [facility] Urine (Urine) 02/20/2017 3:5 5 PM EST 02/20/2017 3:57 PM EST Adriana LESLIE LAB GENERAL ORDERABLES Final Re sult Performing Organization Address [facility] Co de Phone Number [address] [address] * (ABNORMAL) Urinalysis (02/20/2017 3:55 PM EST) COLOR Yellow Yellow [facility] CLARITY CLOUDY [facility] GLUCOSE Negative Negative [facility] BILI Negative Negative [facility] KETONES Trace(A) Negative [facility] SPECIFIC GRAVITY 1.015 1.005 - 1.030 [facility] BLOOD Negative Negative [facility] PH 7.5 5.0 - 8.0 [facility] Protein-UA Negative Negative [facility] NITRITE Negative Negative [facility] Leukocyte esterase, ur Negative Negative [facility] Urine (Urine) 02/20/2017 3:5 5 PM EST 02/20/2017 3:57 PM EST Adriana LESLIE LAB URINE ORDERABLES Final Resu lt Performing Organization Address [facility] Co de Phone Number [address] [address] * Syphilis antibody screen (02/20/2017 2:17 PM EST) RPR NON-REACTIV E NON-REACTI VE [facility] Blood 02/20/2017 2:17 PM EST 02/20/2017 2:25 PM EST us Adriana Blume PA LAB BLOOD BKR ORDERABLES Final Result Performing Organization Address City/[facility]/ZIP Co de Phone Number [address] [address] * HIV-1/2 antigen/antibody (02/20/2017 2:17 PM EST) HIV Antibod(ies) NON-REACTI VE NON-REACTI VE [facility] HIV-1 ANTIGEN NON-REACTI VE NON-REACTI VE [facility] Blood 02/20/2017 2:17 PM EST 02/20/2017 2:25 PM EST us Adriana Blume PA LAB BLOOD BKR ORDERABLES Final Result Performing Organization Address [facility]/ZIP Co de Phone Number [address] [address] * Hepatitis B core antibody, total (02/20/2017 2:17 PM EST) HEP B CORE AB, TOT Negative Negative [facility] Blood 02/20/2017 2:17 PM EST 02/20/2017 2:25 PM EST us Adriana OneHealth Solutionsume PA LAB BLOOD BKR ORDERABLES Final Result Performing Organization Address City/[facility]/ZIP Co de Phone Number [address] [address] * Hepatitis C antibody, qualitative (02/20/2017 2:17 PM EST) HCV Negative Negative [facility] Comment: This is a screening test and should be confirmed with molecular testing Blood 02/20/2017 2:17 PM EST 02/20/2017 2:25 PM EST us Adriana Blume PA LAB BLOOD BKR ORDERABLES Final Result Performing Organization Address City/[facility]/ZIP Co de Phone Number [address] [address] * Hepatitis B surface antibody (02/20/2017 2:17 PM EST) Pathologist [facility] HBV SURFACE ANTIBODY Negative [facility] Comment: Unvaccinated: Negative Vaccinated: Positive Blood 02/20/2017 2:17 PM EST 02/20/2017 2:25 PM EST [facility] LAB BLOOD BKR ORDERABLES Final Result Performing Organization Address [facility] de Phone Number [address] [address] * Hepatitis B surface antigen (02/20/2017 2:17 PM EST) Pathologist [facility] HBV SURFACE ANTIGEN Negative Negative [facility] Blood 02/20/2017 2:17 PM EST 02/20/2017 2:25 PM EST [facility] LAB BLOOD BKR ORDERABLES Final Result Performing Organization Address [facility] de Phone Number [address] [address] * (ABNORMAL) CBC and differential (02/20/2017 2:17 PM EST) Pathologist [facility] WBC 7.66 3.40 - 11.20 K/uL [facility] RBC 4.57 4.50 - 5.50 M/uL [facility] HGB 15.0 13.0 - 17.0 g/dL [facility] HCT 41.0 40.0 - 51.0 % [facility] PLT 251 130 - 400 K/uL [facility] MCV 89.7 79.0 - 98.0 [facility] MCH 32.8 27.0 - 34.8 pg [facility] MCHC 36.6(H) 31.5 - 36.0 g/dL [facility] RDW 11.8 10.8 - 14.6 % [facility] MPV 10.2 9.4 - 12.4 [facility] NRBC 0.00 /100 WBCs [facility] ABSOLUTE NRBC 0.00 K/uL [facility] DIFF METHOD Auto [facility] NEUTS 68.6 45.30 - 77.70 % [facility] LYMPHS 22.5 12.30 - 39.70 % [facility] MONOS 6.7 4.10 - 12.80 % [facility] EOS 1.6 0 - 7.2 % [facility] BASOS 0.5 0 - 2.80 % [facility] Granulocytes, immature (%) 0.1 0.0 - 0.9 % [facility] ABSOLUTE NEUTS 5.26 1.40 - 7.70 K/uL [facility] ABSOLUTE LYMPHS 1.72 0.60 - 3.20 K/uL [facility] ABSOLUTE MONOS 0.51 0.11 - 0.59 K/uL [facility] ABSOLUTE EOS 0.12 0.01 - 0.50 K/uL [facility] ABSOLUTE BASOS 0.04 0.00 - 0.08 K/uL [facility] Granulocytes, immature 0.01 0.00 - 0.05 K/uL [facility] Blood 02/20/2017 2:17 PM EST 02/20/2017 2:25 PM EST us Adriana LESLIE LAB BLOOD BKR ORDERABLES Final Result Performing Organization Address City/State/[facility] Co de Phone Number [address] [address] * (ABNORMAL) Lipid panel (02/20/2017 2:17 PM EST) HDL 51 mg/dL [facility] Comment: Interpretation: Risk Level Males Decreased >45 mg/dL Average 40-45 mg/dL Increased <40 mg/dL CHOLESTEROL 157 0 - 240 mg/dL [facility] TRIGLYCERIDES 177(H) 30 - 160 mg/dL [facility] LDL 71 50 - 129 mg/dL [facility] Comment: LDL levels in terms of risk for coronary heart disease: <100 mg/dL: Optimal 100-129 mg/dL: Near or above optimal 130-159 mg/dL: Borderline high 160-189 mg/dL: High >190 mg/dL: Very High CARDIAC RISK RATIO 3.1(L) 3.4 - 5.0 C [facility] Blood 02/20/2017 2:17 PM EST 02/20/2017 2:25 PM EST [facility] LAB BLOOD BKR ORDERABLES Final Result [address] [address] * TSH (02/20/2017 2:17 PM EST) TSH 1.46 0.27 - 4.20 uIU/mL [facility] Blood 02/20/2017 2:17 PM EST 02/20/2017 2:25 PM EST [facility] LAB BLOOD BKR ORDERABLES Final Result Performing Organization Address City/[facility] Co de Phone Number [address] [address] * (ABNORMAL) Comprehensive metabolic panel (02/20/2017 2:17 PM EST) SODIUM 139 133 - 146 mmol/L [facility] POTASSIUM 3.6 3.3 - 5.1 mmol/L [facility] CHLORIDE 98 96 - 108 mmol/L [facility] CO2 28 21 - 35 mmol/L [facility] BUN 17 6 - 19 mg/dL [facility] CREATININE 0.60 0.5 - 1.5 mg/dL [facility] GLUCOSE 145(H) 70 - 99 mg/dL [facility] ALBUMIN 4.7 3.9 - 4.8 g/dL [facility] TOTAL PROTEIN 7.5 6.5 - 8.0 g/dL [facility] CALCIUM 9.2 8.4 - 10.3 mg/dL [facility] ALKALINE PHOSPHATASE 61 39 - 117 U/L [facility] TOTAL BILIRUBIN 0.6 0 - 1.2 mg/dL [facility] AST 25 0 - 37 U/L [facility] ALT 19 0 - 40 U/L [facility] GLOBULIN 2.8 1 - 4.8 g/dL [facility] EGFR >60 60 - 1000 mL/min/1.7 3m2 [facility] Comment:Abnormal if <60. If patient is -Nepalese, multiply the result by 1.21. ANION GAP 17 10 - 20 mmol/L [facility] Blood 02/20/2017 2:17 PM EST 02/20/2017 2:25 PM EST us Adriana LESLIE LAB BLOOD BKR ORDERABLES Final Result Performing Organization Address City/State/[facility] Co de Phone Number [address] [address] documented in this encounter Visit Diagnoses Diagnosis Routine general medical examination at a health care facility- Primary Chest pain, unspecified type Palpitations Dizziness and giddiness documented in this encounter Additional Health Concerns Infection Onset Date Last Indicated Resolved Time CoV-Risk 12/04/2020 12/04/2020 12/04/2020 5:36 PM EDT COVID-19 12/04/2020 12/04/2020 12/25/2020 1:21 AM EDT documented as of this encounter Care Teams Cardiac Technologist Relationship Specialty Start Date End Date Adriana Vee PA [address] [place] [address] [email or web address] PCP - General Unknown Provider Specialty 02/20/17 09/07/22 Pcp, Unknown PCP - General 09/08/22 09/17/22 Pcp, Unknown PCP - General 09/18/22 02/18/24 Pcp, Unknown PCP - General 02/19/24 Adriana Vee PA [address] [place] [address] [email or web address] Unknown Provider Specialty 09/08/22 Lubna Cabrales MD [address] [place] [address] Insurance Assigned Provider 06/27/18 03/26/19 Lubna Cabrales MD [address] [place] [address] [email or web address] Insurance Assigned Provider 06/30/19 08/30/19 Lubna Cabrales MD [address] [place] [address] [email or web address] Insurance Assigned Provider 03/04/20 12/30/20 documented as of this encounter Additional Source Comments The information contained in this document represents components of the legal health record. It is not the complete legal health record.[facility]
--- OUTSIDE RECORDS SUMMARY | 2025-02-14 16:30 | XMS_ITS | Encounter Summary ---
Author Organization [facility] Address [address] [place] [phone] Phone Care Team Providers Care Punchboard Assembler Name Role Phone Pcp, Unknown Primary Care Provider Unavailabl e Adriana Vee Unavailable [phone] Pcp, Unknown Primary Care Provider Unavailabl e Encounter Details Date Type Department Care Team (Late st Contact Info) Description 07/16/2023 Procedure Pass [address] [place] [address] Social History Tobacco Use Types Packs/Day Years [...] on filedocumented in this encounter Care Teams Punchboard Assembler Relationship Specialty Start Date End Date Pcp, Unknown PCP - General 09/18/22 02/18/24 Pcp, Unknown PCP - General 02/19/24 Adriana [place] [address] [email or web address] ([email or web address]) Unknown Provider Specialty 09/08/22 documented as of this encounter Additional Source Comments The information contained in this document represents components of the legal health record. It is not the complete legal health record.[facility]
== END 2025-02-14 13:36 | disposition home or self-care (01) ==
LOC: HO.HGS 13:09
PROVIDERS: PCP Student in an Organized Health Care Education/Training Program; Visit Provider Surgery
DX: K40.90 Unilateral inguinal hernia, without obstruction or gangrene, not specified as recurrent (principal)
CPT/HCPCS: 99204